=== PATIENT | female | born 1955 | race African-American/Black ===

== ENCOUNTER 2018-12-30 19:53 | Emergency (ER) | payer OTHER ==
--- OUTSIDE RECORDS SUMMARY | 2018-12-30 19:56 | XMS REPORT ---
:1955 [facility] Address [address] [place] [address] [address] [place] [address] Care Team Providers Name Role Phone Unavailable Unavailable Unavailable Problems This patient has no known problems. Allergies, Adverse Reactions, Alerts This patient has no known allergies or adverse reactions. Medications This patient has no known medications.
--- OUTSIDE RECORDS SUMMARY | 2018-12-30 19:56 | XMS REPORT | Clinical Summary ---
:1955 Author Organization [facility] Address [address] [place] [address] Care Team Providers Name Role Phone Unavailable Primary Care Provider Unavailable Allergies Not on File Medications Not on file Active Problems Not on file Social History Tobacco Use Types Packs/Day Years Used Date Never Assessed Sex Assigned at Date Recorded Not on file Job Start Date Occupation Industry Not on file Not on file Not on file Travel History Travel Start Travel End No recent travel history available. Last Filed Vital Signs Not on file Plan of Treatment Not on file Results Not on fileafter 12/29/2017
[2018-12-31] MEDS ORDERED: KETOROLAC 30 MG/ML INJ ONE (00:25)
--- NOTE | 2018-12-31 00:30 | ER ---
Nurse's Notes [facility] Name: Elisa Robledo Age: 63 yrs Sex: Female : 1955 Arrival Date: 12/30/2018 Time: 19:56 Bed 18 Private MD: Diagnosis: Sprain of other specified parts of right knee Presentation: 12/30 20:03 Presenting complaint: Patient states: Right knee pain for 3 weeks, reports burning aj sensation. Minimal swelling. Transition of care: patient was not received from another setting of care. Onset of symptoms was December 08, 2018. Risk Assessment: Do you want to hurt yourself or someone else? Patient reports no desire to harm self or others. Initial Sepsis Screen: Does the patient meet any 2 criteria? No. Patient's initial sepsis screen is negative. Does the patient have a suspected source of infection? No. Patient's initial sepsis screen is negative. Care prior to arrival: None. 20:03 Method Of Arrival: Ambulatory aj 20:03 Acuity: SREEDHAR 4 aj Triage Assessment: 20:04 General: Appears in no apparent distress. comfortable, Behavior is calm, cooperative, aj appropriate for age. Pain: Complains of pain in right knee. Neuro: Level of Consciousness is awake, alert, obeys commands, Oriented to person, place, time, situation, Appropriate for age. Respiratory: Airway is patent Trachea midline Respiratory effort is even, unlabored, Respiratory pattern is regular, symmetrical. Derm: Skin is intact, is healthy with good turgor, Skin is pink, warm \T\ dry. normal. Musculoskeletal: Reports pain in right knee. Historical: - Allergies: 20:04 Codeine; aj - Home Meds: 20:04 levothyroxine 25 mcg tab 1 tab once daily [Active]; lisinopril 10 mg Oral tab 1 tab aj once daily [Active]; - PMHx: 20:04 Hypertension; aj - PSHx: 20:04 None; aj - Immunization history:: Adult Immunizations up to date. - Social history:: Smoking status: Patient/guardian denies using tobacco. - Ebola Screening: : Patient negative for fever greater than or equal to 101.5 degrees Fahrenheit, and additional compatible Ebola Virus Disease symptoms Patient denies exposure to infectious person Patient denies travel to an Ebola-affected area in the 21 days before illness onset No symptoms or risks identified at this time. Screenin:40 Abuse screen: Denies threats or abuse. Nutritional screening: No deficits noted. jb4 Tuberculosis screening: No symptoms or risk factors identified. Fall Risk None identified. Assessment: 21:35 General: Appears in no apparent distress. comfortable, Behavior is calm, cooperative, jb4 appropriate for age. Pain: Complains of pain in right knee Pain does not radiate. Pain currently is 8 out of 10 on a pain scale. at worst was 10 out of 10 on a pain scale. Quality of pain is described as burning, Pain began 2-3 days ago. Is continuous, Alleviated by rest, Aggravated by increased activity, weight bearing. Neuro: Level of Consciousness is awake, alert, obeys commands, Oriented to person, place, time, situation. Cardiovascular: Patient's skin is warm and dry. Respiratory: Airway is patent Respiratory effort is even, unlabored, Respiratory pattern is regular, symmetrical. GI: No signs and/or symptoms were reported involving the gastrointestinal system. : No signs and/or symptoms were reported regarding the genitourinary system. EENT: No signs and/or symptoms were reported regarding the EENT system. Derm: Skin is intact, Skin is dry, Skin is normal, Skin temperature is warm. Musculoskeletal: Circulation, motion, and sensation intact. Range of motion: intact in all extremities. 22:19 Reassessment: Patient appears in no apparent distress at this time. Patient and/or jb4 family updated on plan of care and expected duration. Pain level reassessed. Patient is alert, oriented x 3, equal unlabored respirations, skin warm/dry/pink. 23:30 Reassessment: Patient appears in no apparent distress at this time. Patient and/or jb4 family updated on plan of care and expected duration. Pain level reassessed. Patient is alert/active/playful, equal unlabored respirations, skin warm/dry/pink. Vital Signs: 20:04 BP 98 / 66; Pulse 75; Resp 18; Temp 98.5; Pulse Ox 98% on R/A; Weight 81.19 kg; Height aj 5 ft. 4 in. (162.56 cm); 22:15 BP 103 / 77; Pulse 79; Resp 18; Pulse Ox 100% on R/A; jb4 23:38 BP 105 / 84; Pulse 55; Resp 16; Pulse Ox 100% on R/A; jb4 20:04 Body Mass Index 30.72 (81.19 kg, 162.56 cm) ED Course: 19:56 Patient arrived in ED. ag3 20:03 Triage completed. 20:04 Arm band placed on left wrist. Patient placed in waiting room, Patient notified of wait aj time. 21:17 Knee Right 3 View XRAY In Process Unspecified. EDMS 21:30 Ryan Alonzo MD is Attending Physician. tw4 21:40 Patient has correct armband on for positive identification. Bed in low position. Call [facility] light in reach. Side rails up X 1. Pulse ox on. NIBP on. 21:44 Hunter Toro, RN is Primary Nurse. [facility] 23:47 Door closed. Lights dimmed. Warm blanket given. Pillow given. 4 12/31 00:40 No provider procedures requiring assistance completed. Patient did not have IV access ch during this emergency room visit. Knee immobilizer applied on left knee. Administered Medications: 00:17 Drug: TORadol 60 mg Route: IM; Site: right gluteus; [facility] Outcome: 00:28 Discharge ordered by . [facility] 00:50 Discharged to home ambulatory, with family. 00:50 Condition: stable 00:50 Discharge instructions given to patient, Instructed on discharge instructions, follow up and referral plans. medication usage, Demonstrated understanding of instructions, follow-up care, medications, Prescriptions given X 1. 00:52 Patient left the ED. Signatures: Dispatcher [employer] EDMS Ivette Benedict, RN OCTAVIA Ree Maradiaga RN RN Hunter Toro, OCTAVIA DUDLEY [facility] Ryan Alonzo MD MD [facility] Skye Mathias 3
--- NOTE | 2018-12-31 00:30 | EDPHYS ---
Physician Documentation [facility] Name: Elisa Robledo Age: 63 yrs Sex: Female : 1955 Arrival Date: 12/30/2018 Time: 19:56 Bed 18 Private MD: ED Physician Ryan Alonzo HPI: 12/31 05:45 This 63 yrs old Black Female presents to ER via Ambulatory with complaints of Knee tw4 Injury. 05:45 The patient presents with pain. The complaints affect the right knee. Context: The tw4 problem was sustained at home, resulted from. Onset: The symptoms/episode began/occurred today. Modifying factors: The symptoms are alleviated by nothing. the symptoms are aggravated by nothing. Associated signs and symptoms: The patient has no apparent associated signs or symptoms. Severity of symptoms: At their worst the symptoms were moderate, in the emergency department the symptoms are unchanged. The patient has not experienced similar symptoms in the past. Historical: - Allergies: 12/30 20:04 Codeine; aj - Home Meds: 20:04 levothyroxine 25 mcg tab 1 tab once daily [Active]; lisinopril 10 mg Oral tab 1 tab aj once daily [Active]; - PMHx: 20:04 Hypertension; aj - PSHx: 20:04 None; aj - Immunization history:: Adult Immunizations up to date. - Social history:: Smoking status: Patient/guardian denies using tobacco. - Ebola Screening: : Patient negative for fever greater than or equal to 101.5 degrees Fahrenheit, and additional compatible Ebola Virus Disease symptoms Patient denies exposure to infectious person Patient denies travel to an Ebola-affected area in the 21 days before illness onset No symptoms or risks identified at this time. ROS: 12/31 05:45 Constitutional: Negative for fever, chills, and weight loss, Eyes: Negative for injury, tw4 pain, redness, and discharge, Cardiovascular: Negative for chest pain, palpitations, and edema, Respiratory: Negative for shortness of breath, cough, wheezing, and pleuritic chest pain, Abdomen/GI: Negative for abdominal pain, nausea, vomiting, diarrhea, and constipation, Back: Negative for injury and pain. Skin: Negative for injury, rash, and discoloration, Neuro: Negative for headache, weakness, numbness, tingling, and seizure. MS/extremity: Positive for pain, swelling, tenderness. Exam: 05:45 Constitutional: This is a well developed, well nourished patient who is awake, alert, tw4 and in no acute distress. Head/Face: Normocephalic, atraumatic. Chest/axilla: Normal chest wall appearance and motion. Nontender with no deformity. No lesions are appreciated. Cardiovascular: Regular rate and rhythm with a normal S1 and S2. No gallops, murmurs, or rubs. Normal PMI, no JVD. No pulse deficits. Respiratory: Lungs have equal breath sounds bilaterally, clear to auscultation and percussion. No rales, rhonchi or wheezes noted. No increased work of breathing, no retractions or nasal flaring. Abdomen/GI: Soft, non-tender, with normal bowel sounds. No distension or tympany. No guarding or rebound. No evidence of tenderness throughout. Back: No spinal tenderness. No costovertebral tenderness. Full range of motion. Neuro: Awake and alert, GCS 15, oriented to person, place, time, and situation. Cranial nerves II-XII grossly intact. Motor strength 5/5 in all extremities. Sensory grossly intact. Cerebellar exam normal. Normal gait. 05:45 Musculoskeletal/extremity: Extremities: noted in the right knee: Vital Signs: 12/30 20:04 BP 98 / 66; Pulse 75; Resp 18; Temp 98.5; Pulse Ox 98% on R/A; Weight 81.19 kg; Height aj 5 ft. 4 in. (162.56 cm); 22:15 BP 103 / 77; Pulse 79; Resp 18; Pulse Ox 100% on R/A; jb4 23:38 BP 105 / 84; Pulse 55; Resp 16; Pulse Ox 100% on R/A; jb4 20:04 Body Mass Index 30.72 (81.19 kg, 162.56 cm) aj MDM: 21:52 Patient medically screened. tw4 12/31 05:51 Differential diagnosis: dislocation, open fracture. Data reviewed: vital signs, nurses tw4 notes. Data interpreted: Pulse oximetry: Interpretation:. Counseling: I had a detailed discussion with the patient and/or guardian regarding: the historical points, exam findings, and any diagnostic results supporting the discharge/admit diagnosis. Special discussion: I discussed with the patient/guardian in detail that at this point there is no indication for admission to the hospital. It is understood, however, that if the symptoms persist or worsen the patient needs to return immediately for re-evaluation. 12/30 20:05 Order name: Knee Right 3 View XRAY aj 12/31 00:17 Order name: Knee Immobilizer; Complete Time: 00:18 jb4 Administered Medications: 00:17 Drug: TORadol 60 mg Route: IM; Site: right gluteus; jb4 Disposition: 12/31/18 00:28 Discharged to Home. Impression: Sprain of other specified parts of right knee. - Condition is Stable. - Discharge Instructions: Knee Sprain, [id number]. - Prescriptions for Tramadol 50 mg Oral Tablet - take 1 tablet by ORAL route every 8 hours as needed; 12 tablet. - Medication Reconciliation Form, Thank You Letter, Antibiotic Education, Prescription Opioid Use form. - Follow up: Private Physician; When: Upon discharge from the Emergency Department; Reason: If symptoms return, Recheck today's complaints, Continuance of care. - Problem is new. - Symptoms have improved. Signatures: Dispatcher [employer] EDMS Ivette Benedict RN RN ch Myers, Amanda, RN RN aj Bryson, James, RN RN jb4 Ryan Alonzo MD MD tw4 Corrections: (The following items were deleted from the chart) 00:52 00:28 12/31/2018 00:28 Discharged to Home. Impression: Sprain of other specified parts ch of right knee. Condition is Stable. Forms are Medication Reconciliation Form, Thank You Letter, Antibiotic Education, Prescription Opioid Use. Follow up: Private Physician; When: Upon discharge from the Emergency Department; Reason: If symptoms return, Recheck today's complaints, Continuance of care. Problem is new. Symptoms have improved. tw4
--- NOTE | 2018-12-31 07:37 | RAD REPORT ---
EXAM DESCRIPTION: RAD - Knee Right 3 View - 12/30/2018 9:15 pm CLINICAL HISTORY: Persistent right knee pain COMPARISON: None. FINDINGS: No fracture, dislocation or periosteal reaction.No joint effusion seen. No joint space alden rowing. No foreign body or other soft tissue abnormality. Minimal spurring seen at the quadriceps att achment to the patella. IMPRESSION: Negative right knee for acute finding. Clinical concerns for internal derangement or occult bony injury could be further assessed with MR im aging.
== END 2018-12-31 00:52 | disposition home or self-care (01) ==
LOC: ER 19:53
DX: S83.91XA Sprain of unspecified site of right knee, initial encounter (principal); I10 Essential (primary) hypertension; Z88.5 Allergy status to narcotic agent
CPT/HCPCS: 96372; 99284

== ENCOUNTER 2019-03-30 16:56 | Emergency (ER) | payer OTHER ==
--- NOTE | 2019-03-30 18:32 | RAD REPORT ---
EXAM DESCRIPTION: RAD - Foot Left 3 View - 03/30/2019 6:07 pm CLINICAL HISTORY: Left fourth toe pain COMPARISON: None. FINDINGS: No fracture, dislocation, periosteal reaction or other acute fourth toe finding. No joint abnormality. Minimal degenerative change seen along the lateral margin of the fifth metatarsal head. No active pro cess seen. Mild degenerative change at the first MTP joint. No acute or destructive bony process. No plantar spur. No air or foreign body in the soft tissues. IMPRESSION: No acute bone or soft tissue finding at the fourth toe. Mild degenerative change in the foot with no acute finding.
--- NOTE | 2019-03-30 18:48 | EDPHYS ---
Physician Documentation [facility] Name: Elisa Robledo Age: 63 yrs Sex: Female : 1955 Arrival Date: 03/30/2019 Time: 17:00 Bed 25 Private MD: Jonathon Bassett S ED Physician West Reid HPI: 03/30 17:50 This 63 yrs old Black Female presents to ER via Ambulatory with complaints of Toe cp pain,swelling. 17:50 The patient presents with pain, that is acute. The complaints affect the left fourth cp toe. Context: the patient can fully bear weight, the patient is able to ambulate, with mild difficulty. Onset: The symptoms/episode began/occurred 2-3 weeks ago. Associated signs and symptoms: Pertinent negatives: calf tenderness, numbness, swelling, warmth. Severity of symptoms: in the emergency department the symptoms have improved, mildly. Historical: - Allergies: 17:44 Codeine; mg2 - Home Meds: 17:44 levothyroxine 25 mcg tab 1 tab once daily [Active]; lisinopril 10 mg Oral tab 1 tab mg2 once daily [Active]; gabapentin oral oral [Active]; - PMHx: 17:44 Hypertension; Hypothyroidism; shingles; mg2 - PSHx: 17:44 left foot sx; mg2 - Immunization history:: Flu vaccine is up to date. - Social history:: Smoking status: Patient/guardian denies using tobacco, Patient/guardian denies using alcohol, street drugs, IV drugs. - Ebola Screening: : No symptoms or risks identified at this time. ROS: 17:55 Constitutional: Negative for body aches, chills, fever, poor PO intake. cp 17:55 Eyes: Negative for injury, pain, redness, and discharge. cp 17:55 Cardiovascular: Negative for chest pain, palpitations. 17:55 Respiratory: Negative for cough, shortness of breath, wheezing. 17:55 Abdomen/GI: Negative for abdominal pain, vomiting, diarrhea, constipation. 17:55 Back: Negative for pain at rest, pain with movement. 17:55 MS/extremity: Positive for pain, of the left fourth toe, Negative for injury or acute deformity. 17:55 Skin: Negative for cellulitis, rash. 17:55 All other systems are negative. Exam: 18:05 Constitutional: The patient appears in no acute distress, alert, awake, non-toxic, well cp developed, well nourished. 18:05 Head/Face: Normocephalic, atraumatic. cp 18:05 Eyes: Periorbital structures: appear normal, Sclera: no appreciated abnormality, Lids and lashes: appear normal, bilaterally. 18:05 ENT: External ear(s): are unremarkable, Nose: is normal, Mouth: is normal. 18:05 Chest/axilla: Inspection: normal. 18:05 Cardiovascular: Rate: normal. 18:05 Respiratory: the patient does not display signs of respiratory distress, Respirations: normal. 18:05 Abdomen/GI: Inspection: abdomen appears normal. 18:05 Musculoskeletal/extremity: Extremities: grossly normal except: noted in the left fourth toe: deformity, pain, tenderness, There is no evidence of erythema, Perfusion: the extremity is normally perfused throughout, Sensation intact. 18:05 Skin: abscess, not appreciated, cellulitis, is not appreciated, injury, is not appreciated. Vital Signs: 17:42 BP 124 / 80; Pulse 89; Resp 18; Temp 98.8(TE); Pulse Ox 99% on R/A; Weight 78.02 kg; mg2 Height 5 ft. 2 in. (157.48 cm); Pain 6/10; 19:14 BP 122 / 80; Pulse 80; Resp 18; Temp 98; Pulse Ox 100% on R/A; mg2 17:42 Body Mass Index 31.46 (78.02 kg, 157.48 cm) mg2 MDM: 17:33 Patient medically screened. cp 18:00 Differential diagnosis: fracture, cellulitis. cp 18:46 Data reviewed: vital signs, nurses notes, radiologic studies, plain films. cp 18:46 Test interpretation: by ED physician or midlevel provider: plain radiologic studies, cp xrays of left foot negative for fracture. Counseling: I had a detailed discussion with the patient and/or guardian regarding: the historical points, exam findings, and any diagnostic results supporting the discharge/admit diagnosis, radiology results, the need for outpatient follow up, a baker bread, to return to the emergency department if symptoms worsen or persist or if there are any questions or concerns that arise at home. Response to treatment: the patient's symptoms have mildly improved after treatment, and as a result, I will discharge patient. 03/30 17:43 Order name: XRAY Foot LEFT 3 View cp 03/30 18:52 Order name: Post-op shoe; Complete Time: 19:13 cp Administered Medications: No medications were administered Disposition: 03/31 16:29 Co-signature as Attending Physician, West Reid MD. rn Disposition: 03/30/19 18:47 Discharged to Home. Impression: Pain in left toe(s) - left fourth. - Condition is Stable. - Discharge Instructions: Musculoskeletal Pain. - Prescriptions for Ibuprofen 800 mg Oral Tablet - take 1 tablet by ORAL route every 8 hours As needed take with food; 30 tablet. - Medication Reconciliation Form, Thank You Letter, Antibiotic Education, Prescription Opioid Use form. - Follow up: Gokul Alexandre DPM; When: 2 - 3 days; Reason: toe pain. - Problem is new. - Symptoms are unchanged. Signatures: Dispatcher [employer] EDWest Melara MD MD rn Miguel Pandey PA PA cp Gardose, Michele, RN RN mg2 Corrections: (The following items were deleted from the chart) 03/30 19:15 18:47 03/30/2019 18:47 Discharged to Home. Impression: Pain in left toe(s) - left mg2 fourth. Condition is Stable. Forms are Medication Reconciliation Form, Thank You Letter, Antibiotic Education, Prescription Opioid Use. Follow up: Gokul Alexandre; When: 2 - 3 days; Reason: toe pain. Problem is new. Symptoms are unchanged. cp
--- NOTE | 2019-03-30 18:48 | ER ---
Nurse's Notes [facility] Name: Elisa Robledo Age: 63 yrs Sex: Female : 1955 Arrival Date: 03/30/2019 Time: 17:00 Bed 25 Private MD: Jonathon Bassett S Diagnosis: Pain in left toe(s)-left fourth Presentation: 03/30 17:40 Presenting complaint: Patient states: my left 4th toe has been hurting for awhile now. mg2 i took tramadol this morning and it helped. Transition of care: patient was not received from another setting of care. Onset of symptoms was March 2019. Risk Assessment: Do you want to hurt yourself or someone else? Patient reports no desire to harm self or others. Initial Sepsis Screen: Does the patient meet any 2 criteria? No. Patient's initial sepsis screen is negative. Does the patient have a suspected source of infection? No. Patient's initial sepsis screen is negative. Care prior to arrival: None. 17:40 Method Of Arrival: Ambulatory mg2 17:40 Acuity: SREEDHAR 4 mg2 Historical: - Allergies: 17:44 Codeine; mg2 - Home Meds: 17:44 levothyroxine 25 mcg tab 1 tab once daily [Active]; lisinopril 10 mg Oral tab 1 tab mg2 once daily [Active]; gabapentin oral oral [Active]; - PMHx: 17:44 Hypertension; Hypothyroidism; shingles; mg2 - PSHx: 17:44 left foot sx; mg2 - Immunization history:: Flu vaccine is up to date. - Social history:: Smoking status: Patient/guardian denies using tobacco, Patient/guardian denies using alcohol, street drugs, IV drugs. - Ebola Screening: : No symptoms or risks identified at this time. Screenin:05 Abuse screen: Denies threats or abuse. Denies injuries from another. Nutritional mg2 screening: No deficits noted. Tuberculosis screening: No symptoms or risk factors identified. Fall Risk None identified. Assessment: 18:03 General: Appears in no apparent distress. comfortable, Behavior is calm, cooperative. mg2 Pain: Complains of pain in left 4th toe Pain does not radiate. Pain currently is 6 out of 10 on a pain scale. Quality of pain is described as aching, Pain began gradually. Neuro: Level of Consciousness is awake, alert, obeys commands, Oriented to person, place, time, situation. Cardiovascular: Capillary refill < 3 seconds Patient's skin is warm and dry. Respiratory: Airway is patent Respiratory effort is even, unlabored, Respiratory pattern is regular, symmetrical. GI: No signs and/or symptoms were reported involving the gastrointestinal system. : No signs and/or symptoms were reported regarding the genitourinary system. EENT: No signs and/or symptoms were reported regarding the EENT system. Derm: Skin is intact, is healthy with good turgor, Skin is pink, warm \T\ dry. normal. Musculoskeletal: Vital Signs: 17:42 BP 124 / 80; Pulse 89; Resp 18; Temp 98.8(TE); Pulse Ox 99% on R/A; Weight 78.02 kg; mg2 Height 5 ft. 2 in. (157.48 cm); Pain 6/10; 19:14 BP 122 / 80; Pulse 80; Resp 18; Temp 98; Pulse Ox 100% on R/A; mg2 17:42 Body Mass Index 31.46 (78.02 kg, 157.48 cm) mg2 ED Course: 17:00 Patient arrived in ED. mr 17:00 Jonathon Bassett MD is Private Physician. mr 17:32 Jesse Lott, OCTAVIA is Primary Nurse. mg2 17:33 Miguel Pandey PA is PHCP. cp 17:33 West Reid MD is Attending Physician. cp 17:42 Triage completed. mg2 17:44 Arm band placed on. mg2 18:05 Patient has correct armband on for positive identification. Pulse ox on. NIBP on. Door mg2 closed. Warm blanket given. 18:06 No provider procedures requiring assistance completed. Patient did not have IV access mg2 during this emergency room visit. 18:09 XRAY Foot LEFT 3 View In Process Unspecified. EDMS 18:46 Gokul Alexandre DPM is Referral Physician. cp 19:14 post op shoe provided. mg2 Administered Medications: No medications were administered Outcome: 18:47 Discharge ordered by MD. cp 19:14 Discharged to home ambulatory. mg2 19:14 Condition: stable 19:14 Discharge instructions given to patient, Instructed on discharge instructions, follow up and referral plans. medication usage, Demonstrated understanding of instructions, follow-up care, medications, Prescriptions given X 1. 19:15 Patient left the ED. mg2 Signatures: Dispatcher [employer] EDMS MorrowBruna mr Miguel Pandey PA PA cp Gardose, Michele, RN RN mg2
[2019-03-30 19:27] VITALS: BP 122/80; TEMP 98; O2SAT 100
== END 2019-03-30 19:15 | disposition home or self-care (01) ==
LOC: ER 16:56
DX: M79.675 Pain in left toe(s) (principal); I10 Essential (primary) hypertension; E03.9 Hypothyroidism, unspecified; Z88.5 Allergy status to narcotic agent
CPT/HCPCS: 99284

== ENCOUNTER 2019-08-04 17:55 | Emergency (ER) | payer OTHER ==
--- OUTSIDE RECORDS SUMMARY | 2019-08-04 17:57 | XMS REPORT ---
:1955 [facility] [address] [place] [address] Care Team Providers Name Role Phone Unavailable Unavailable Unavailable Problems This patient has no known problems. Allergies, Adverse Reactions, Alerts This patient has no known allergies or adverse reactions. Medications This patient has no known medications.
--- OUTSIDE RECORDS SUMMARY | 2019-08-04 17:58 | XMS REPORT | Summary of Care ---
:1955 Author Organization [facility] Address [address] [place] [id number] Care Team Providers Name Role Phone Jonathon Bassett MD Primary Care Provider Reason for Visit Reason Comments Refill Request Encounter Details Date Type Department Care Team Description 07/13/2019 Refill [facility] Family Medicine Jonathon Bassett MD Refill Request - [address] [id number] [place] [address] Allergies Active Allergy Reactions Severity Noted Date Comments Codeine Unknown - See comments 04/11/2015 Does not remember what the side effect was. documented as of this encounter (statuses as of 07/13/2019) Medications Medication Sig Dispensed Refills Start Date End Date Status acyclovir 5 % Apply to 5 g 0 06/19/2017 Active ointment area(s) 5 (five) times daily. fluocinonide 0.05 % Apply to 30 g 5 07/16/2017 Active cream area(s) 2 (two) times daily. hydrOXYzine 25 mg Take 1 tablet 15 tablet 0 08/27/2017 Active tabletIndications: by mouth every Rash 8 (eight) hours as needed for Itching. METHOCARBAMOL ORAL Take by mouth 0 Active as needed. dicyclomine 10 mg Take 1 capsule 90 capsule 1 01/20/2018 Active capsule by mouth 3 (three) times daily as needed for Abdominal pain. SHINGRIX, PF, 0 08/30/2018 Active injection lisinopril-hydrochlo TAKE 1 TABLET 90 tablet 3 09/23/2018 Active rothiazide 20-25 mg BY MOUTH ONCE per DAILY tabletIndications: Essential hypertension levothyroxine 75 mcg TAKE ONE 90 tablet 3 09/24/2018 Active tablet TABLET BY MOUTH ONCE DAILY IN THE MORNING conjugated estrogens Begin 0.5 g PV 30 g 3 10/03/2018 Active 0.625 mg/gram qd x 2 weeks vaginal then 0.5 g PV creamIndications: 2x/wk Postmenopausal state, Vaginal atrophy naproxen 500 mg Take 1 tablet 30 tablet 0 01/01/2019 Active tabletIndications: by mouth 2 Acute pain of right (two) times knee daily as needed for Pain (scale 4-6). GABAPENTIN 300 mg TAKE 1 CAPSULE 90 capsule 0 07/13/2019 Active capsuleIndications: BY MOUTH THREE Neurogenic pain TIMES DAILY gabapentin 300 mg TAKE 1 CAPSULE 90 capsule 3 09/23/2018 Discontinued capsuleIndications: BY MOUTH THREE 0 Neurogenic pain TIMES DAILY documented as of this encounter (statuses as of 07/13/2019) Active Problems Problem Noted Date Obesity (BMI 30-39.9) 10/03/2018 Hiatal hernia 08/13/2017 Hypertension Neurogenic pain Hypothyroid documented as of this encounter (statuses as of 07/13/2019) Immunizations Name Administration Dates Next Due Influenza Virus Vaccine Quad ID [id number] [id number] 05/02/2018 documented as of this encounter Social History Tobacco Use Types Packs/Day Years Used Date Never Smoker Smokeless Tobacco: Never Used Alcohol Use Drinks/Week oz/Week Comments No 0 Standard drinks or equivalent 0.0 Sex Assigned at Date Recorded Not on file Job Start Date Occupation Industry Not on file Not on file Not on file Travel History Travel Start Travel End No recent travel history available. documented as of this encounter Last Filed Vital Signs Not on filedocumented in this encounter Plan of Treatment Health Maintenance Due Date Last Done Comments HEPATITIS C (HCV) SCREEN 1955 DTaP,Tdap,and Td Vaccines (1 1968 - Tdap) COLONOSCOPY 2007 Zoster Recombinant Vaccine 2007 (SHINGRIX) (1 of 2) INFLUENZA VACCINE (#1) 2019 Breast Cancer Screening 10/04/2019 10/03/2018, (MAMMOGRAM) 10/08/2016 PAP SMEAR 10/03/2021 10/03/2018 PNEUMOCOCCAL 0-64 YEARS Aged Out No longer eligible based COMBINED SERIES on patient's age to complete this topic documented as of this encounter Results Not on filedocumented in this encounter Visit Diagnoses Diagnosis Neurogenic pain Neuralgia, neuritis, and radiculitis, unspecified documented in this encounter Insurance Payer Benefit Plan / Group Subscriber ID Effective Dates Phone Address Type AETDILSHAD CHACON [employer] [id number] 2012-Present PPO documented as of this encounter
--- OUTSIDE RECORDS SUMMARY | 2019-08-04 17:58 | XMS REPORT | Summary of Care ---
:1955 Author Organization [facility] - Health Address [address] [place] [address] Care Team Providers Name Role Phone Jonathon Bassett MD Primary Care Provider Encounter Details Date Type Department Care Team Description 06/23/2019 Orders Only [facility] Doctor Unassigned, No [address] [facility] Name [place] [id number] [address] [place] [id number] Allergies Active Allergy Reactions Severity Noted Date Comments Codeine Unknown - See comments 04/11/2015 Does not remember what the side effect was. documented as of this encounter (statuses as of 06/23/2019) Medications Medication Sig Dispensed Refills Start Date End Date Status acyclovir 5 % ointment Apply to area(s) 5 g 0 06/19/2017 Active 5 (five) times daily. fluocinonide 0.05 % Apply to area(s) 30 g 5 07/16/2017 Active cream 2 (two) times daily. hydrOXYzine 25 mg Take 1 tablet by 15 tablet 0 08/27/2017 Active tabletIndications: mouth every 8 Rash (eight) hours as needed for Itching. METHOCARBAMOL ORAL Take by mouth as 0 Active needed. dicyclomine 10 mg Take 1 capsule by 90 capsule 1 01/20/2018 Active capsule mouth 3 (three) times daily as needed for Abdominal pain. SHINGRIX, PF, 0 08/30/2018 Active injection lisinopril-hydrochloro TAKE 1 TABLET BY 90 tablet 3 09/23/2018 Active thiazide 20-25 mg per MOUTH ONCE DAILY tabletIndications: Essential hypertension gabapentin 300 mg TAKE 1 CAPSULE BY 90 capsule 3 09/23/2018 Active capsuleIndications: MOUTH THREE TIMES Neurogenic pain DAILY levothyroxine 75 mcg TAKE ONE TABLET 90 tablet 3 09/24/2018 Active tablet BY MOUTH ONCE DAILY IN THE MORNING conjugated estrogens Begin 0.5 g PV qd 30 g 3 10/03/2018 Active 0.625 mg/gram vaginal x 2 weeks then creamIndications: 0.5 g PV 2x/wk Postmenopausal state, Vaginal atrophy naproxen 500 mg Take 1 tablet by 30 tablet 0 01/01/2019 Active tabletIndications: mouth 2 (two) Acute pain of right times daily as knee needed for Pain (scale 4-6). documented as of this encounter (statuses as of 06/23/2019) Active Problems Problem Noted Date Obesity (BMI 30-39.9) 10/03/2018 Hiatal hernia 08/13/2017 Hypertension Neurogenic pain Hypothyroid documented as of this encounter (statuses as of 06/23/2019) Immunizations Name Administration Dates Next Due Influenza [...] (HCV) SCREEN 1955 DTaP,Tdap,and Td Vaccines (1 1976 - Tdap) COLONOSCOPY 2007 Zoster Recombinant Vaccine 2007 (SHINGRIX) (1 of 2) INFLUENZA VACCINE (#1) 2019 Breast Cancer Screening 10/04/2019 10/03/2018, (MAMMOGRAM) 10/08/2016 PAP SMEAR 10/03/2021 10/03/2018 PNEUMOCOCCAL 0-64 YEARS Aged Out No longer eligible based COMBINED SERIES on patient's age to complete this topic documented as of this encounter Procedures Procedure Name Priority Date/Time Associated Diagnosis Comments VACCINATIONS - CONSENTS, Routine 06/23/2019 12:01 AM 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
[2019-08-04] MEDS ORDERED: CYCLOBENZAPRINE 10 MG TAB ONE (18:58)
[2019-08-04] MEDS ORDERED: KETOROLAC 30 MG/ML INJ ONE (18:58)
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
[2019-08-05 02:26] VITALS: O2SAT 99
[2019-08-05 02:28] VITALS: BP 122/74; TEMP 98.2
== END 2019-08-04 19:26 | disposition home or self-care (01) ==
LOC: ER 17:55
DX: S13.4XXA Sprain of ligaments of cervical spine, initial encounter (principal); S23.3XXA Sprain of ligaments of thoracic spine, initial encounter; V49.40XA Driver injured in collision with unspecified motor vehicles in traffic accident, initial encounter; I10 Essential (primary) hypertension; Z88.5 Allergy status to narcotic agent
CPT/HCPCS: 96372; 99283

== ENCOUNTER 2019-08-06 13:27 | Emergency (ER) | payer OTHER ==
--- OUTSIDE RECORDS SUMMARY | 2019-08-06 13:28 | XMS REPORT ---
:1955 Author [facility] Address [address] [place] [address] Care Team Providers Name Role Phone Unavailable Unavailable Unavailable Problems This patient has no known problems. Allergies, Adverse Reactions, Alerts This patient has no known allergies or adverse reactions. Medications This patient has no known medications.
[2019-08-06 14:20] LABS: Absolute Lymphocytes (CBC) 1.2 K/uL (0.7-4.9); Basophils % 0.9 % (0-1.3); Hematocrit 35.1 % (36.0-45.0); Lymphocytes % 29.1 % (15.3-44.8); MPV 8.8 fL (7.6-11.3); RBC Red Blood Cell Count 4.31 M/uL (3.86-4.86)
[2019-08-06 14:27] LABS: BUN Blood Urea Nitrogen 11 mg/dL (7-18); Bicarbonate 27 mmol/L (21-32); Glucose Level 80 mg/dL (74-106); Potassium 3.3 mmol/L (3.5-5.1); Sodium Level 141 mmol/L (136-145)
[2019-08-06] MEDS ORDERED: POTASSIUM CL SA 10 MEQ TAB PO ONE (14:56)
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
[2019-08-06 15:56] VITALS: TEMP 98.1; O2SAT 99
[2019-08-06 15:58] VITALS: BP 134/81
== END 2019-08-06 15:46 | disposition home or self-care (01) ==
LOC: ER 13:27
DX: G89.11 Acute pain due to trauma (principal); I10 Essential (primary) hypertension; Z88.5 Allergy status to narcotic agent
CPT/HCPCS: 85025; 80048; 36415; 70450; 72125; 71260; 74177; 99284; Q9967

== ENCOUNTER 2022-02-28 22:48 | Emergency (ER) | payer BC, OTHER ==
--- OUTSIDE RECORDS SUMMARY | 2022-02-28 22:52 | XMS REPORT | Continuity of Care Document ---
:1955 Author Organization [facility] t Address [address] [place] [address] Care Team Providers Name Role Phone Beti Dow MD Primary Care Physician Lab, Ang - Db Attending Clinician Unavailable Beti Dow MD Attending Clinician BETI DOW Attending Clinician Unavailable Doctor Unassigned, Tamora Attending Clinician Unavailable Caorl Askew MD Attending Clinician Payers Payer Name Policy Type Policy Number Effective Date Expiration Date S ource Problems Condition Condition Condition Status Onset Resolution Last Treating Co mments Source Name Details Category Date Date Treatment Clinician Date Left upper Left upper Disease Active Overview : Univers quadrant quadrant 5-17 Formattin ity of pain pain 00:00: g of this [place] note Medical might be Branch different from the original. Added automatic ally from request for surgery [id number] Obesity Obesity Disease Active Univers (BMI (BMI 4-26 ity of 30-39.9) 30-39.9) 00:00: [place] [address] Medical Branch Hiatal Hiatal Disease Recurre Univers hernia hernia nce 3-06 ity of 00:00: [place] [address] Medical Branch Hypertensi Hypertensi Disease Active U nivers on on ity of [facility] Neurogenic Neurogenic Disease Active U nivers pain pain ity of [facility] Hypothyroi Hypothyroi Disease Active U nivers d d ity of [facility] Allergies, Adverse Reactions, Alerts Allergy Allergy Status Severity Reaction(s) Onset Inactive Treating Comm ents Source Name Type Date Date Clinician CODEINE DRUG Active Unknown-Cmnt 2014-06 Uni vers INGREDI 06-11 ity of 00:00: [address] Branch Codeine Propensi Active Unknown - 2014-06 Does not Un kendal ty to See comments 06-11 remember it y of adverse 00:00: what the [place] reaction 00 side Medical s effect Branch was. Social History Social Habit Start Date Stop Date Quantity Comments Source Exposure to 2022-02-11 2022-02-21 Not sure [facility] SARS-CoV-2 00:00:00 13:45:00 [facility] [place] [facility] (event) [place] Alcohol intake 2020-12-06 2020-12-06 0 /d [facility] 00:00:00 00:00:00 [facility] Tobacco use and 2017-08-27 2017-08-27 Smokeless tobacco Un iversity of exposure 00:00:00 00:00:00 non-user [facility] Sex Assigned At 1955 [address] [facility] 00:00:00 00:00:00 [facility] Smoking Status Start Date Stop Date Source Never smoked tobacco [facility] Medications Ordered Filled Start Stop Current Ordering Indication Dosage Frequency Signature Comments Components Source Medication Medication Date Date Medication? Clinician (SIG) Name Name levothyroxi Yes [id number] TAKE 1 Univers ne 6-16 TABLET BY ity of (EUTHYROX) 00:00: M[place]TH [place]CE [place] 75 mcg 00 DAILY IN Medical tablet THE Branch MORNING . APPOINTMEN T REQUIRED FOR FUTURE REFILLS levothyroxi Yes [id number] TAKE 1 Univers ne 6-16 TABLET BY ity of (EUTHYROX) 00:00: MOUTH ONCE [place] 75 mcg 00 DAILY IN Medical tablet THE Branch MORNING . APPOINTMEN T REQUIRED FOR FUTURE REFILLS levothyroxi Yes [id number] TAKE 1 Univers ne 6-16 TABLET BY ity of (EUTHYROX) 00:00: MOUTH ONCE [place] 75 mcg 00 DAILY IN Medical tablet THE Branch MORNING . APPOINTMEN T REQUIRED FOR FUTURE REFILLS levothyroxi Yes [id number] TAKE 1 Univers ne 6-16 TABLET BY ity of (EUTHYROX) 00:00: MOUTH ONCE [place] 75 mcg 00 DAILY IN Medical tablet THE Branch MORNING . APPOINTMEN T REQUIRED FOR FUTURE REFILLS lisinopriL- 2021-0 Yes [id number] 1{tbl} Take 1 Univers hydrochloro 4-13 tablet by ity of thiazide 00:00: mouth [place] 20-25 mg 00 daily. Medical per tablet Branch levothyroxi Yes [id number] TAKE 1 Univers ne 4-13 TABLET BY ity of (EUTHYROX) 00:00: MOUTH ONCE [place] 75 mcg 00 DAILY IN Medical tablet THE Branch MORNING . APPOINTMEN T REQUIRED FOR FUTURE REFILLS dicyclomine Yes [id number] 10mg Take 1 Univers 10 mg 4-13 capsule by ity of capsule 00:00: mouth 3 (three) Medical times Branch daily as needed for Abdominal pain. methocarbam Yes [id number] 750mg Take 1 Univers oL 750 mg 4-13 tablet by ity o f tablet 00:00: mouth 4 (four) Medical times Branch daily as needed (muscle spasm). lisinopriL- Yes [id number] 1{tbl} Take 1 Univers hydrochloro 4-13 tablet by ity of thiazide 00:00: mouth [place] 20-25 mg 00 daily. Medical per tablet Branch dicyclomine Yes [id number] 10mg Take 1 Univers 10 mg 4-13 capsule by ity of capsule 00:00: mouth 3 (three) Medical times Branch daily as needed for Abdominal pain. methocarbam 0 Yes [id number] 750mg Take 1 Univers oL 750 mg 4-13 tablet by ity o f tablet 00:00: mouth 4 (four) Medical times Branch daily as needed (muscle spasm). lisinopriL- Yes [id number] 1{tbl} Take 1 Univers hydrochloro 4-13 tablet by ity of thiazide 00:00: mouth [place] 20-25 mg 00 daily. Medical per tablet Branch dicyclomine Yes [id number] 10mg Take 1 Univers 10 mg 4-13 capsule by ity of capsule 00:00: mouth 3 00 (three) Medical times Branch daily as needed for Abdominal pain. methocarbam 2021-0 Yes [id number] 750mg Take 1 Univers oL 750 mg 4-13 tablet by ity o f tablet 00:00: mouth 4 [place] 00 (four) Medical times Branch daily as needed (muscle spasm). lisinopriL- 2021-0 Yes [id number] 1{tbl} Take 1 Univers hydrochloro 4-13 tablet by ity of thiazide 00:00: mouth [place] 20-25 mg 00 daily. Medical per tablet Branch dicyclomine 2021-0 Yes [id number] 10mg Take 1 Univers 10 mg 4-13 capsule by ity of capsule 00:00: mouth 3 [place] 00 (three) Medical times Branch daily as needed for Abdominal pain. methocarbam 0 Yes [id number] 750mg Take 1 Univers oL 750 mg 4-13 tablet by ity o f tablet 00:00: mouth 4 [place] 00 (four) Medical times Branch daily as needed (muscle spasm). lisinopriL- 0 Yes [id number] 1{tbl} Take 1 Univers hydrochloro 4-13 tablet by ity of thiazide 00:00: mouth [place] 20-25 mg 00 daily. Medical per tablet Branch dicyclomine 0 Yes [id number] 10mg Take 1 Univers 10 mg 4-13 capsule by ity of capsule 00:00: mouth 3 [place] 00 (three) Medical times Branch daily as needed for Abdominal pain. methocarbam 0 Yes [id number] 750mg Take 1 Univers oL 750 mg 4-13 tablet by ity o f tablet 00:00: mouth 4 [place] 00 (four) Medical times Branch daily as needed (muscle spasm). levothyroxi 202- No [id number] TAKE 1 Univers ne 4-13 06-16 TABLET BY ity of (EUTHYROX) 00:00: 00:00 MOUTH ONCE [place] 75 mcg 00 :00 DAILY IN Medical tablet THE Branch MORNING . APPOINTMEN T REQUIRED FOR FUTURE REFILLS ibuprofen 0 Yes [id number] 600mg Take 1 Univers 600 mg 6-07 tablet by ity of tablet 00:00: mouth [place] 00 every 8 Medical (eight) Branch hours as needed for Pain (scale 4-6). ibuprofen Yes [id number] 600mg Take 1 Univers 600 mg 6-07 tablet by ity of tablet 00:00: mouth [place] 00 every 8 Medical (eight) Branch hours as needed for Pain (scale 4-6). ibuprofen 2020-0 Yes [id number] 600mg Take 1 Univers 600 mg 6-07 tablet by ity of tablet 00:00: mouth [place] 00 every 8 Medical (eight) Branch hours as needed for Pain (scale 4-6). ibuprofen 2020-0 Yes [id number] 600mg Take 1 Univers 600 mg 6-07 tablet by ity of tablet 00:00: mouth [place] 00 every 8 Medical (eight) Branch hours as needed for Pain (scale 4-6). ibuprofen 2020-0 Yes [id number] 600mg Take 1 Univers 600 mg 6-07 tablet by ity of tablet 00:00: mouth [place] 00 every 8 Medical (eight) Branch hours as needed for Pain (scale 4-6). iopamidol 2020- No [id number] 120mL 120 mL, Univers (ISOVUE 06 05-06 Intravenou ity o f 300-500 mL) 22:30: 21:11 s, ONCE, 1 [place] injection 00 :00 dose, [facility] Medic al 120 mL 10/13/20 at Branch 1730, Routine NAPROXEN 0 Yes Acute pain TAKE 1 U nivers 500 mg 4-09 of right TABLET BY ity of tablet 00:00: knee MOUTH [place] 00 TWICE Medical DAILY Branch NEEDED FOR PAIN (SCALE 4-6) NAPROXEN 2020-0 Yes [id number] TAKE 1 U nivers 500 mg 4-09 TABLET BY ity of tablet 00:00: MOUTH [place] 00 TWICE Medical DAILY Branch NEEDED FOR PAIN (SCALE 4-6) NAPROXEN 2020-0 Yes [id number] TAKE 1 U nivers 500 mg 4-09 TABLET BY ity of tablet 00:00: MOUTH [place] 00 TWICE Medical DAILY Branch NEEDED FOR PAIN (SCALE 4-6) NAPROXEN 2020-0 Yes [id number] TAKE 1 U nivers 500 mg 4-09 TABLET BY ity of tablet 00:00: MOUTH [place] 00 TWICE Medical DAILY Branch NEEDED FOR PAIN (SCALE 4-6) NAPROXEN 2020-0 Yes [id number] TAKE 1 U nivers 500 mg 4-09 TABLET BY ity of tablet 00:00: MOUTH [place] 00 TWICE Medical DAILY Branch NEEDED FOR PAIN (SCALE 4-6) NAPROXEN 2020-0 Yes [id number] TAKE 1 U nivers 500 mg 4-09 TABLET BY ity of tablet 00:00: MOUTH [place] 00 TWICE Medical DAILY Branch NEEDED FOR PAIN (SCALE 4-6) METHOCARBAM Yes Take by Uni vers OL ORAL 3-31 mouth as ity of 13:03: needed. [place] 58 Medical Branch levothyroxi 0 Yes Hypothyroid TAKE 1 Univers ne 75 mcg 2-19 ism, TABLET BY ity o f tablet 00:00: unspecified MOUTH ONCE [place] 00 type DAILY IN Medical THE Branch MORNING fluocinonid 2019-0 Yes Apply to Un kendal e 0.05 % 6-04 area(s) 2 ity of cream 00:00: (two) [place] 00 times Medical daily. Branch fluocinonid 2020-0 Yes Apply to Un kendal e 0.05 % 6-04 area(s) 2 ity of cream 00:00: (two) [place] 00 times Medical daily. Branch fluocinonid 2020-0 Yes Apply to Un kendal e 0.05 % 6-04 area(s) 2 ity of cream 00:00: (two) [place] 00 times Medical daily. Branch fluocinonid 2019-0 Yes Apply to Un kendal e 0.05 % 6-04 area(s) 2 ity of cream 00:00: (two) [place] 00 times Medical daily. Branch fluocinonid 2020-0 Yes Apply to Un kendal e 0.05 % 6-04 area(s) 2 ity of cream 00:00: (two) [place] 00 times Medical daily. Branch fluocinonid 2020-0 Yes Apply to Un kendal e 0.05 % 6-04 area(s) 2 ity of cream 00:00: (two) [place] 00 times Medical daily. Branch GABAPENTIN 2019- Yes Neurogenic TAKE 1 Univers 300 mg 5-13 pain CAPSULE BY ity of capsule 00:00: MOUTH [place] 00 THREE Medical TIMES Branch DAILY lisinopril- 2019-0 Yes Essential TAKE 1 Univers hydrochloro 3-10 hypertensio TABLET BY ity of thiazide 00:00: n MOUTH ONCE [place] 20-25 mg 00 DAILY Medical per tablet Branch conjugated 2018- Yes [id number] Begin 0.5 Univers estrogens 4-26 g PV qd x ity o f 0.625 00:00: 2 weeks [place] mg/gram 00 then 0.5 g Medica l vaginal PV 2x/wk Branch cream conjugated Yes [id number] Begin 0.5 Univers estrogens 4-26 g PV qd x ity o f 0.625 00:00: 2 weeks [place] mg/gram 00 then 0.5 g Medica l vaginal PV 2x/wk Branch cream conjugated Yes [id number] Begin 0.5 Univers estrogens 4-26 g PV qd x ity o f 0.625 00:00: 2 weeks [place] mg/gram 00 then 0.5 g Medica l vaginal PV 2x/wk Branch cream conjugated Yes [id number] Begin 0.5 Univers estrogens 4-26 g PV qd x ity o f 0.625 00:00: 2 weeks [place] mg/gram 00 then 0.5 g Medica l vaginal PV 2x/wk Branch cream conjugated Yes [id number] Begin 0.5 Univers estrogens 4-26 g PV qd x ity o f 0.625 00:00: 2 weeks [place] mg/gram 00 then 0.5 g Medica l vaginal PV 2x/wk Branch cream conjugated Yes Vaginal Begin 0.5 Univers estrogens 4-26 atrophy g PV qd x it y of 0.625 00:00: 2 weeks [place] mg/gram 00 then 0.5 g Medica l vaginal PV 2x/wk Branch cream SHINGRIX, Yes Univers PF, 3-23 ity of injection 00:00: [place] 00 Medical Branch dicyclomine 2017- Yes 10mg Take 1 Univ ers 10 mg 8-13 capsule by ity of capsule 00:00: mouth 3 [place] 00 (three) Medical times Branch daily as needed for Abdominal pain. hydrOXYzine Yes Rash 25mg Take 1 Univ ers 25 mg 3-20 tablet by ity of tablet 00:00: mouth [place] 00 every 8 Medical (eight) Branch hours as needed for Itching. acyclovir 5 Yes Apply to Un kendal % ointment 1-10 area(s) 5 ity of 00:00: (five) [place] 00 times Medical daily. Branch Immunizations Ordered Filled Immunization Date Status Comments [facility] Immunization Name Name SARS-COV-2 COVID-19 2022-01-16 Completed Unive rsity of MODERNA 0.25ML 00:00:[address] [facility] mariella BOOSTER VACCINE Branch SARS-COV-2 COVID-19 2022-01-16 Completed Unive rsity of MODERNA 0.25ML 00:00:00 [place] Medi mariella BOOSTER VACCINE Branch SARS-COV-2 COVID-19 2022-01-16 Completed Unive rsity of MODERNA 0.25ML 00:00:00 [place] Medi mariella BOOSTER VACCINE Branch SARS-COV-2 COVID-19 2021-05-25 Completed Unive rsity of MODERNA VACCINE 00:00:00 [facility] ical Branch SARS-COV-2 COVID-19 2021-05-25 Completed Unive rsity of MODERNA VACCINE 00:00:00 [facility] ical Branch SARS-COV-2 COVID-19 2021-05-25 Completed Unive rsity of MODERNA 12+ YRS 00:00:00 [facility] ical VACCINE Branch SARS-COV-2 COVID-19 2021-05-25 Completed Unive rsity of MODERNA 12+ YRS 00:00:00 [facility] ical VACCINE Branch SARS-COV-2 COVID-19 2021-05-25 Completed Unive rsity of MODERNA 12+ YRS 00:00:00 [facility] ical VACCINE Branch Influenza Virus 2021-04-29 Completed Universit y of Vaccine Recomb Quad 00:00:00 [place] Medical IM, Preserv and ABX Branc h Free 18-64 YRS Influenza Virus 2021-04-29 Completed Universit y of Vaccine Recomb Quad 00:00:00 [place] Medical IM, Preserv and ABX Branc h Free 18-64 YRS Influenza Virus 2021-04-29 Completed Universit y of Vaccine Recomb Quad 00:00:00 [place] Medical IM, Preserv and ABX Branc h Free 18-64 YRS Influenza Virus 2021-04-29 Completed Universit y of Vaccine Recomb Quad 00:00:00 [place] Medical IM, Preserv and ABX Branc h Free 18-64 YRS Influenza Virus 2021-04-29 Completed Universit y of Vaccine Recomb Quad 00:00:00 [place] Medical IM, Preserv and ABX Branc h Free 18-64 YRS SARS-COV-2 COVID-19 2020-09-12 Completed Unive rsity of MODERNA VACCINE 00:00:00 [facility] ical Branch SARS-COV-2 COVID-19 2020-09-12 Completed Unive rsity of MODERNA VACCINE 00:00:00 [place] Med ical Branch SARS-COV-2 COVID-19 2020-09-12 Completed Unive rsity of MODERNA 12+ YRS 00:00:00 [facility] ical VACCINE Branch SARS-COV-2 COVID-19 2020-09-12 Completed Unive rsity of MODERNA 12+ YRS 00:00:00 [facility] VACCINE Branch SARS-COV-2 COVID-19 2020-09-12 Completed Unive rsity of MODERNA 12+ YRS 00:00:00 [facility] VACCINE Branch SARS-COV-2 COVID-19 2020-08-18 Completed Unive rsity of MODERNA VACCINE 00:00:00 [facility] Branch SARS-COV-2 COVID-19 2020-08-18 Completed Unive rsity of MODERNA VACCINE 00:00:00 [facility] Branch SARS-COV-2 COVID-19 2020-08-18 Completed Unive rsity of MODERNA 12+ YRS 00:00:00 [facility] VACCINE Branch SARS-COV-2 COVID-19 2020-08-18 Completed Unive rsity of MODERNA 12+ YRS 00:00:00 [facility] VACCINE Branch SARS-COV-2 COVID-19 2020-08-18 Completed Unive rsity of MODERNA 12+ YRS 00:00:00 [facility] VACCINE Branch Influenza Virus 2020-03-15 Completed Universit y of Vaccine Recomb Quad 00:00:00 [place] Medical IM, Preserv and ABX Branc h Free 18-64 YRS Influenza Virus 2020-03-15 Completed Universit y of Vaccine Recomb Quad 00:00:00 [place] Medical IM, Preserv and ABX Branc h Free 18-64 YRS Influenza Virus 2020-03-15 Completed Universit y of Vaccine Recomb Quad 00:00:00 [place] Medical IM, Preserv and ABX Branc h Free 18-64 YRS Influenza Virus 2020-03-15 Completed Universit y of Vaccine Recomb Quad 00:00:00 [place] Medical IM, Preserv and ABX Branc h Free 18-64 YRS Influenza Virus 2020-03-15 Completed Universit y of Vaccine Recomb Quad 00:00:00 [place] Medical IM, Preserv and ABX Branc h Free 18-64 YRS Influenza Virus 2020-03-15 Completed Universit y of Vaccine Recomb Quad 00:00:00 [place] Medical IM, Preserv and ABX Branc h Free 18-64 YRS Zoster Vaccine 2018-11-24 Completed University of Recombinant 00:00:00 [facility] Zoster Vaccine 2018-11-24 Completed University of Recombinant 00:00:00 [facility] Zoster Vaccine 2018-11-24 Completed University of Recombinant 00:00:00 [facility] Zoster Vaccine 2018-11-24 Completed University of Recombinant 00:00:00 [facility] Zoster Vaccine 2018-11-24 Completed University of Recombinant 00:00:00 [facility] Zoster Vaccine 2018-08-30 Completed University of Recombinant 00:00:00 [facility] Zoster Vaccine 2018-08-30 Completed University of Recombinant 00:00:00 [facility] Zoster Vaccine 2018-08-30 Completed University of Recombinant 00:00:00 [facility] Zoster Vaccine 2018-08-30 Completed University of Recombinant 00:00:00 [facility] Zoster Vaccine 2018-08-30 Completed University of Recombinant 00:00:00 [facility] Influenza Virus 2018-05-02 Completed Universit y of Vaccine Quad ID 00:00:00 [facility] 18-64 YRS Branch Influenza Virus 2018-05-02 Completed Universit y of Vaccine Quad .5 mL 00:00:00 [place] Medical IM 6+ MO Branch Influenza Virus 2018-05-02 Completed Universit y of Vaccine Quad ID 00:00:00 [facility] 18-64 YRS Branch Influenza Virus 2018-05-02 Completed Universit y of Vaccine Quad .5 mL 00:00:00 [place] Medical IM 6+ MO Branch Influenza Virus 2018-05-02 Completed Universit y of Vaccine Quad ID 00:00:00 [facility] ica 18-64 YRS Branch Influenza Virus 2018-05-02 Completed Universit y of Vaccine Quad .5 mL 00:00:00 [place] Medical IM 6+ MO Branch Influenza Virus 2018-05-02 Completed Universit y of Vaccine Quad ID 00:00:00 [place] Med ical 18-64 YRS Branch Influenza Virus 2018-05-02 Completed Universit y of Vaccine Quad .5 mL 00:00:00 [place] Medical IM 6+ MO Branch Influenza Virus 2018-05-02 Completed Universit y of Vaccine Quad ID 00:00:00 [place] Med ical 18-64 YRS Branch Influenza Virus 2018-05-02 Completed Universit y of Vaccine Quad .5 mL 00:00:00 [place] Medical IM 6+ MO Branch Influenza Virus 2018-05-02 Completed Universit y of Vaccine Quad ID 00:00:00 [place] Med ical 18-64 YRS Branch Procedures Procedure Date / Time Performing Clinician Source Performed VACCINATIONS - 2022-01-16 05:01:00 [facility] Un[facility] CONSENTS, ELIGIBILITY, Name Medical B ranch HISTORY CT ABDOMEN PELVIS W 2020-10-13 21:15:28 Esa Quiroz [facility] CONTRAST Medical Branch Plan of Care Planned Activity Planned Date Details Comments Source Future Scheduled 2021-10-03 Screening for [facility] Test 00:00:00 malignant neoplasm of Medica l Branch cervix (procedure) [code = 848333571] Future Scheduled 2021-09-07 Depression screening [facility] Test 00:00:00 (procedure) [code = Medical Branch 003084535] Future Scheduled 2019-10-04 Screening for [facility] Test 00:00:00 malignant neoplasm of Medica l Branch breast (procedure) [code = 620456678] Future Scheduled 2007 Screening for occult [facility] Test 00:00:00 blood in feces Medical Bran h (procedure) [code = 780292855] Future Scheduled 2007 Stool DNA-based [facility] Test 00:00:00 colorectal cancer Medical Br anch screening (procedure) [code = 472782411492738] Future Scheduled 2007 Flexible fiberoptic [facility] Test 00:00:00 sigmoidoscopy Medical Branch (procedure) [code = 89537764] Future Scheduled 2007 Screening for [facility] Test 00:00:00 malignant neoplasm of Medica l Branch colon (procedure) [code = 692184905] Future Scheduled 2007 Screening for [facility] Test 00:00:00 malignant neoplasm of Medica l Branch colon (procedure) [code = 289463854] Future Scheduled 2007 Zoster Recombinant [facility] Test 00:00:00 Vaccine (SHINGRIX) (1 Medica l Branch of 2) [code = Zoster Recombinant Vaccine (SHINGRIX) (1 of 2)] Future Scheduled 1976 DTaP,Tdap,and Td [facility] Test 00:00:00 Vaccines (1 - Tdap) Medical Branch [code = DTaP,Tdap,and Td Vaccines (1 - Tdap)] Future Scheduled 1975 [facility] ([facility] [code = [facility] 372222373] Future Scheduled 1973 [facility]COVID-19[facility] Vaccine (1) [code = [facility] SARS-CoV-2 (COVID-19) Vaccine (1)] Encounters Start End Encounter Admission Attending Care Care Encounter Source Date/Time Date/Time Type Type Clinicians Facility Department ID 2022-02-22 2022-02-22 Grinder Set Up Operator Thread Lab, Ang - Db [facility] [id number] Univers 07:45:00 08:00:00 Visit Beti Dow [facility] [id number] ity of [place] [id number] [place] MANINDER?BLEA [phone] [facility] [address] [place] MEDICAL OFFICE BUILDING 2022-02-22 2022-02-22 Outpatient R [facility] [id number] Univers 07:45:00 07:45:00 [id number] ity [facility] 2022-02-22 2022-02-22 Outpatient R [facility] [id number] Univers 07:45:00 07:45:00 BETI [facility] 2022-02-13 2022-02-13 Telephone Victor M [facility] [id number] Univers 00:00:00 00:00:00 [facility] [id number] it y of [place] [id number] [place] MANINDER?BLEA [phone] [facility] [address] [place] MEDICAL OFFICE BUILDING 2022-01-16 2022-01-16 Orders Doctor BERNARDA [id number] Univers 00:00:00 00:00:00 Only Unassigned, RAVIN [id number] ity of [place] [facility] [id number] [place] [phone] [address] 2021-11-23 2021-11-23 Refill Victor M [facility] [id number] Univers 00:00:00 00:00:00 [facility] [id number] it y of [place] [id number] [place] as MANINDER?BLEA [id number] Ct dical [address] MEDICAL OFFICE BUILDING 2021-11-21 2021-11-21 Denis Dow [facility] [id number] Univers 00:00:00 00:00:00 Beti SoCloz [id number] it y of [place] [id number] [place] MANINDER?BLEA [phone] [address] OFFICE [facility] Results Test Test Test Results Result Source Description Time Comments Comments CT ABDOMEN 2020-10- [facility], Radiant Results Inft University PELVIS W 06 - 10/13/2020 4:30 PM [place] [facility] CONTRAST 21:29:35 CDTCT Abdomen and Pelvis Branch with intravenous contrast.CLINICAL HISTORY: Left upper quadrant abdominal pain.DOSE: Up-to-date CT equipment and radiation dose reduction techniques wereemployed. CTDIvol: 8.28 mGy. DLP: 385 mGy-cm.TECHNIQUE : Contiguous axial imaging from the level of the lung basesthrough the pubic symphysis were performed after the uncomplicatedadministratio n of Omnipaque contrast material. Coronal and sagittalreconstructions were obtained. Auto mA and/or iterative reconstruction wereused to reduce radiation dose.FINDINGS: Comparison has been made with previous CT scan of 12/24/2017.Lower lungs: Clear. No pleural effusion or pericardial effusion. Nodefinite evidence of hiatal hernia.Liver, Gallbladder and Spleen: Liver measures approximately 15 cm in lengthand showed several hypodense lesions scattered throughout the liver,ranging from 5 mm to 2.8 cm in size. Cholecystectomy noted. Mild dilatationof the common hepatic duct and common bile duct noted, measuring up to 8mm. Pancreatic duct is not dilated.Spleen measures 8.8 x 3.5 cm in size and appears normal.Peritoneum: No free air or free fluid. No lymphadenopathy.Pancreas and Adrenals: Unremarkable pancreas and adrenal glands.Kidneys and Ureters: No visible calculi in the renal collecting systems. No hydroureter or hydronephrosis. No enhancing kidney lesions detected. Vessels: Slightly tortuous iliac vessels. No aortic aneurysm. Patenthepatic/portal venous systems and renal veins.Retroperitoneum: No abnormal fluid or lymphadenopathy.Bowel: No acute findings. Normal appendix is visualized.Bladder and Reproductive Organs: Prominent vessels are seen in theparametrium, more prominent on the left side. No free fluid in the pelvis.Grossly unremarkable unopacified urinary bladder.Bones: No acute findings. Battery pack is seen implanted over the rightanterior abdominal wall with intrathecal catheter extending into the lumbarspinal canal at the level of L1-L2 and the tip of the catheter withelectrodes noted in the dorsal aspect of the spinal canal at T11-T12 level.Soft tissues: Battery pack noted in the right anterior abdominal wall.Postoperative changes of ventral abdominal wall hernia noted using multipletitanium anchors and surgical mesh, all of which appear to be in goodposition.CONCLUSION:1. No acute intra-abdominal or pelvic abnormalities detected.2. S/P cholecystectomy. Mild dilatation of the common hepatic and commonbile duct could be reservoir phenomenon.3. Multiple hypodense lesions scattered throughout the liver, consistentwith hepatic cysts.4. Prominent vessels in the pelvis surrounding the uterus, more prominenton the left side noted, however, there is no interval change in thefindings since December 2017 study.5. Postoperative changes of ventral abdominal wall hernia repair withtitanium anchors and surgical mass in good position.
--- NOTE | 2022-02-28 23:34 | RAD REPORT ---
EXAM DESCRIPTION: RAD - Lumbar Spine 3 Views - 02/28/2022 11:28 pm CLINICAL HISTORY: PAIN Radiculopathy COMPARISON: No comparisons FINDINGS: Vertebral body heights appear maintained. No compression fracture noted. Mild anterolisthe sis L4-5. Bilateral facet hypertrophy is present L5-S1. Cholecystectomy clips. IMPRESSION: Mild lower lumbar spondylosis.
[2022-02-28] MEDS ORDERED: DIAZEPAM 5 MG TABLET ONE (23:53)
[2022-02-28] MEDS ORDERED: HYDROCODONE/APAP 5/325 MG TAB ONE (23:54)
[2022-02-28 23:56] LABS: Urine RBC <5 /HPF (None Seen)
--- NOTE | 2022-03-01 00:15 | ER ---
Nurse's Notes [facility] Name: Elisa Robledo Age: 66 yrs Sex: Female : 1955 Arrival Date: 02/28/2022 Time: 22:52 Bed 6 Private MD: Diagnosis: Sciatica, right side Presentation: 02/28 22:57 Chief complaint: Patient states: C/O right hip, lower back pain - reports previous ld1 sciatic pain. Coronavirus screen: At this time, the client does not indicate any symptoms associated with coronavirus-19. Ebola Screen: No symptoms or risks identified at this time. Initial Sepsis Screen: Does the patient meet any 2 criteria? No. Patient's initial sepsis screen is negative. Does the patient have a suspected source of infection? No. Patient's initial sepsis screen is negative. Risk Assessment: Do you want to hurt yourself or someone else? Patient reports no desire to harm self or others. Onset of symptoms was February 28, 2022. 22:57 Method Of Arrival: Wheelchair ld1 22:57 Acuity: SREEDHAR 3 ld1 Triage Assessment: 22:57 General: Appears in no apparent distress. uncomfortable, Behavior is calm, cooperative, ld1 appropriate for age. Pain: Complains of pain in right lower back Pain does not radiate. Pain currently is 9 out of 10 on a pain scale. EENT: No signs and/or symptoms were reported regarding the EENT system. Neuro: Level of Consciousness is awake, alert, obeys commands, Oriented to person, place, time, situation. Cardiovascular: Capillary refill < 3 seconds Patient's skin is warm and dry. Respiratory: Airway is patent Respiratory effort is even, unlabored. GI: Abdomen is round non-distended. : No signs and/or symptoms were reported regarding the genitourinary system. Derm: No signs and/or symptoms reported regarding the dermatologic system. Musculoskeletal: No signs and/or symptoms reported regarding the musculoskeletal system. Historical: - Allergies: :57 Codeine; ld1 - PMHx: 22:57 Hypertension; Hypothyroidism; shingles; ld1 - PSHx: 22:57 None; ld1 - Immunization history:: Adult Immunizations up to date, Client reports receiving the 2nd dose of the Covid vaccine. - Social history:: Smoking status: Patient denies any tobacco usage or history of. Patient/guardian denies using alcohol. Screenin:12 Abuse screen: Denies threats or abuse. Denies injuries from another. Nutritional tw5 screening: No deficits noted. On. Nutritional screening: No deficits noted. Tuberculosis screening: No symptoms or risk factors identified. Fall Risk Ambulatory Aid- Furniture (30 pts.). Assessment: 23:12 General: Reports "I can usually get around just fine, until all this started. My right tw5 hip just hurts so bad. I has been hard getting in and out of bed.". Pain: Complains of pain in right hip Pain currently is 9 out of 10 on a pain scale. Neuro: Level of Consciousness is awake, alert, obeys commands, Oriented to person, place, time, situation. Vital Signs: 22:57 BP 103 / 82; Pulse 87; Resp 18; Temp 97.6(TE); Pulse Ox 100% on R/A; Weight 81.65 kg; ld1 Height 5 ft. 5 in. (165.10 cm); Pain 9/10; 22:57 Body Mass Index 29.95 (81.65 kg, 165.10 cm) ld1 ED Course: 22:52 Patient arrived in ED. dt4 22:52 Alex Grajeda DO is Attending Physician. ms3 22:57 Arm band placed on right wrist. ld1 22:58 Triage completed. ld1 23:07 Jessica Nguyen is Primary Nurse. tw5 23:12 Placed in gown. Bed in low position. Call light in reach. Side rails up X 1. Pulse ox tw5 on. NIBP on. Door closed. Noise minimized. Moved to private room. Warm blanket given. Verbal reassurance given. 23:12 Assisted to bathroom. tw5 23:30 Lumbar Spine (3 Views) XRAY In Process Unspecified. EDMS 03/01 00:41 No provider procedures requiring assistance completed. Patient did not have IV access tw5 during this emergency room visit. Administered Medications: 02/28 23:48 Drug: HYDROcodone-acetaminophen 5 mg-325 mg 1 tabs Route: PO; jb4 03/01 00:37 Follow up: Response: No adverse reaction; Pain is decreased; RASS: Alert and Calm (0) tw5 02/28 23:48 Drug: Valium (diazepam) 5 mg Route: PO; jb4 03/01 00:37 Follow up: Response: No adverse reaction; Pain is decreased tw5 00:31 Not Given (Physician Discretion): Ketorolac 30 mg IM once ms3 00:37 Drug: Ketorolac 15 mg Route: IM; Site: right ventrogluteal; tw5 00:41 Follow up: Response: No adverse reaction; Medication administered at discharge. tw5 Medication: 02/28 23:12 VIS not applicable for this client. tw5 Outcome: 03/01 00:15 Discharge ordered by . ms3 00:41 Discharged to home via wheelchair, with family. tw5 00:41 Condition: improved 00:41 Discharge instructions given to patient, Instructed on discharge instructions, follow up and referral plans. Demonstrated understanding of instructions, follow-up care, medications, Prescriptions given X 3. 00:41 Patient left the ED. tw5 Signatures: Dispatcher [employer] EDMS Hunter Toro RN RN jb4 lAex Grajeda DO DO ms3 Shereen Schafer RN RN chiquis1 Jessica Nguyen tw5 Callie Avina4
--- NOTE | 2022-03-01 00:16 | EDPHYS ---
Physician Documentation [facility] Name: Elisa Robledo Age: 66 yrs Sex: Female : 1955 Arrival Date: 02/28/2022 Time: 22:52 Bed 6 Private MD: ED Physician Alex Grajeda HPI: 03/01 00:15 This 66 yrs old Black Female presents to ER via Wheelchair with complaints of Hip Pain, ms3 Leg Pain. 00:15 66-year-old female with past medical history of hypertension, hypothyroidism presents ms3 for right lower back pain that radiates down her leg. Patient states the pain began yesterday. Patient's pain is rated 9/10 and described as shooting. Patient states she has had similar episodes in the past that were related to her sciatica. Patient denies alleviating factors. Patient states movement makes the pain worse. Historical: - Allergies: 02/28 22:57 Codeine; ld1 - PMHx: 22:57 Hypertension; Hypothyroidism; shingles; ld1 - PSHx: 22:57 None; ld1 - Immunization history:: Adult Immunizations up to date, Client reports receiving the 2nd dose of the Covid vaccine. - Social history:: Smoking status: Patient denies any tobacco usage or history of. Patient/guardian denies using alcohol. ROS: 03/01 00:15 Constitutional: Negative for fever, and chills. Neck: Negative for injury, pain, and ms3 swelling, Cardiovascular: Negative for chest pain, and palpitations. Respiratory: Negative for shortness of breath, cough, wheezing, and pleuritic chest pain, Abdomen/GI: Negative for abdominal pain, nausea, vomiting, diarrhea, and constipation. Back: Positive for pain with movement. MS/extremity: Positive for pain, paresthesias, of the right leg. Exam: 00:15 Constitutional: This is a well developed, well nourished patient who is awake, alert, ms3 and in no acute distress. Head/Face: Normocephalic, atraumatic. Neck: Trachea midline, no cervical lymphadenopathy. Supple, full range of motion without nuchal rigidity, or vertebral point tenderness. No Meningismus. Chest/axilla: Normal chest wall appearance and motion. Nontender with no deformity. Cardiovascular: Regular rate and rhythm with a normal S1 and S2. No gallops, murmurs, or rubs. Normal PMI, no JVD. No pulse deficits. Respiratory: Lungs have equal breath sounds bilaterally, clear to auscultation and percussion. No rales, rhonchi or wheezes noted. No increased work of breathing, no retractions or nasal flaring. Abdomen/GI: Soft, non-tender, with normal bowel sounds. No distension or tympany. No guarding or rebound. No evidence of tenderness throughout. 00:15 Skin: Warm, dry with normal turgor. Normal color with no rashes, no lesions, and no evidence of cellulitis. MS/ Extremity: Pulses equal, no cyanosis. Neurovascular intact. Full, normal range of motion. Neuro: Awake and alert, GCS 15, oriented to person, place, time, and situation. Cranial nerves II-XII grossly intact. Motor strength 5/5 in all extremities. Sensory grossly intact. Cerebellar exam normal. Normal gait. Psych: Awake, alert, with orientation to person, place and time. Behavior, mood, and affect are within normal limits. 00:15 Back: pain, that is moderate, of the right low back, ROM is normal, normal spinal alignment noted, CVA tenderness, is absent, vertebral tenderness, is not appreciated, muscle spasm, is appreciated in the right low back. Vital Signs: 02/28 22:57 BP 103 / 82; Pulse 87; Resp 18; Temp 97.6(TE); Pulse Ox 100% on R/A; Weight 81.65 kg; ld1 Height 5 ft. 5 in. (165.10 cm); Pain 9/10; 22:57 Body Mass Index 29.95 (81.65 kg, 165.10 cm) ld1 MDM: 23:03 Patient medically screened. ms3 03/01 00:15 Data reviewed: vital signs, nurses notes, lab test result(s), radiologic studies, and ms3 as a result, I will discharge patient. Counseling: I had a detailed discussion with the patient and/or guardian regarding: the historical points, exam findings, and any diagnostic results supporting the discharge/admit diagnosis, lab results, radiology results, the need for outpatient follow up, to return to the emergency department if symptoms worsen or persist or if there are any questions or concerns that arise at home. ED course: Discussed UA and lumbar x-ray with patient. Patient symptoms improved after [place] and Valium. Patient agrees with discharge at this time. Patient to follow-up with primary care physician in 2 to 3 days. All questions were answered. Return precautions discussed include worsening symptoms, or any other concerns. On reevaluation patient is improved, in no apparent distress, nontoxic, ambulatory in the emergency department.. 02/28 23:03 Order name: Urine Microscopic Only; Complete Time: 00:13 ms3 02/28 23:03 Order name: Lumbar Spine (3 Views) XRAY; Complete Time: 00:13 ms3 02/28 23:03 Order name: Urine Dipstick-Ancillary (obtain specimen); Complete Time: 23:53 ms3 Administered Medications: 02/28 23:48 Drug: HYDROcodone-acetaminophen 5 mg-325 mg 1 tabs Route: PO; 4 03/01 00:37 Follow up: Response: No adverse reaction; Pain is decreased; RASS: Alert and Calm (0) tw5 02/28 23:48 Drug: Valium (diazepam) 5 mg Route: PO; 4 03/01 00:37 Follow up: Response: No adverse reaction; Pain is decreased tw5 00:31 Not Given (Physician Discretion): Ketorolac 30 mg IM once ms3 00:37 Drug: Ketorolac 15 mg Route: IM; Site: right ventrogluteal; tw5 00:41 Follow up: Response: No adverse reaction; Medication administered at discharge. tw5 Disposition Summary: 03/01/22 00:15 Discharge Ordered Location: Home ms3 Condition: Stable ms3 Diagnosis - Sciatica, right side ms3 Followup: ms3 - With: Private Physician - When: 2 - 3 days - Reason: Recheck today's complaints Discharge Instructions: - Discharge Summary Sheet ms3 - Sciatica ms3 Forms: - Medication Reconciliation Form ms3 - Thank You Letter ms3 - Antibiotic Education ms3 - Prescription Opioid Use ms3 - Work release form tw5 Prescriptions: - Ibuprofen 600 mg Oral Tablet - take 1 tablet by ORAL route every 6 hours As needed take with food; 30 tablet; ms3 Refills: 0, Product Selection Permitted - Medrol ([place]) 4 mg Oral Tablets, Dose Pack - take 1 tablet by ORAL route as directed - follow package instructions; 1 ms3 packet; Refills: 0, Product Selection Permitted - Cyclobenzaprine 5 mg Oral Tablet - take 1 tablet by ORAL route 3 times per day As needed; 15 tablet; Refills: 0, ms3 Product Selection Permitted Signatures: Dispatcher [employer] Hunter Cook RN RN jb4 Alex Grajeda DO DO ms3 Shereen Schafer RN RN ld1 Jessica Nguyen tw5 Corrections: (The following items were deleted from the chart) 08:47 08:46 This 66 yrs old Black Female presents to ER via Wheelchair with complaints of Hip ms3 Pain, Leg Pain. ms3
[2022-03-01] MEDS ORDERED: KETOROLAC 30 MG/ML INJ ONE (00:40)
[2022-03-02 14:52] LABS: Urine Blood Trace-intact (Negative); Urine Glucose Negative (Negative); Urine Protein Negative (Negative); Urine Specific Gravity 1.015 (1.005-1.030)
[2022-03-02 18:58] VITALS: BP 103/82; TEMP 97.6; O2SAT 100
== END 2022-03-01 00:41 | disposition home or self-care (01) ==
LOC: ER 22:48
DX: M54.31 Sciatica, right side (principal); Z88.5 Allergy status to narcotic agent
CPT/HCPCS: 72100; 81003; 81015; 96372; 99284

== ENCOUNTER 2023-10-13 06:13 | Emergency (ER) | payer BC ==
[2023-10-13 06:59] LABS: Absolute Eosinophils 0.1 K/uL (0-0.5); Absolute Lymphocytes (CBC) 1.1 K/uL (0.7-4.9); Absolute Monocytes 0.8 K/uL (0.1-1.3); Absolute Neutrophil 3.5 K/uL (1.8-8.0); Basophils % 0.7 % (0-1.3); Eosinophils % 1.8 % (0-4.4); Hematocrit 36.6 % (36.0-45.0); Hemoglobin 12.2 g/dL (12.0-15.0); Lymphocytes % 19.8 % (15.3-44.8); MCH 27.4 pg (27.0-35.0); MCHC 33.4 g/dL (32.0-36.0); MCV 82.1 fL (80-100); MPV 9.6 fL (7.6-11.3); Neutrophils % 63.7 % (41.7-73.7); Nucleated Red Blood Cells % 0.1 % (0-0); Platelets 192 thou/uL (152-406); RBC Red Blood Cell Count 4.46 M/uL (3.86-4.86); Red Cell Distribution Width 12.9 % (12.1-15.2)
[2023-10-13 07:11] LABS: SARS-CoV-2 Antigen CONTROL BLUE LINE VIS/BG OK
[2023-10-13 07:12] LABS: SARS-CoV-2 Antigen Rapid Res Positive (Negative)
[2023-10-13 07:13] LABS: Anion Gap 6.4 mEq/L (5.0-15.0); Magnesium 1.9 mg/dL (1.6-2.4); Potassium 3.4 mEq/L (3.5-5.1)
--- NOTE | 2023-10-13 07:16 | RAD REPORT ---
EXAM DESCRIPTION: [place] Single View10/13/2023 7:02 am CLINICAL HISTORY: Shortness breath COMPARISON: 2018 FINDINGS: Artifact overlies chest. The lungs appear clear of acute infiltrate. The heart is normal size IMPRESSION: No acute abnormalities displayed
--- NOTE | 2023-10-13 07:41 | EDPHYS ---
Physician Documentation [facility] Name: Elisa Robledo Age: 68 yrs Sex: Female : 1955 Arrival Date: 10/13/2023 Time: 06:13 Bed 7 Private MD: ED Physician Miguel Gonsales HPI: 10/12 06:29 This 68 yrs old Black Female presents to ER via Unassigned with complaints of Flu ms3 Symptoms, Fever, Cough. 06:29 68-year-old female with past medical history of hypertension, atrial fibrillation ms3 presents to the emergency department for cough and shortness of breath that been ongoing for 24 hours. Patient states her symptoms are becoming worse. Patient endorses chills. Patient denies nausea, vomiting, diarrhea.. Historical: - Allergies: 07:08 Codeine; vc1 - PMHx: 07:08 Hypertension; Hypothyroidism; shingles; Angina pectoris; "Extra heart beat"; vc1 - PSHx: 07:08 section; vc1 - Immunization history:: Client reports receiving the 2nd dose of the Covid vaccine, Flu vaccine is up to date. - Infectious Disease History:: Denies. - Social history:: Smoking status: Patient denies any tobacco usage or history of. ROS: 06:29 Constitutional: Negative for fever, and chills. Neck: Negative for injury, pain, and ms3 swelling, Cardiovascular: Negative for chest pain, and palpitations. 06:29 MS/Extremity: Negative for injury and deformity, Skin: Negative for injury, rash, and discoloration, 06:29 Respiratory: Positive for shortness of breath, Exam: 06:29 Constitutional: This is a well developed, well nourished patient who is awake, alert, ms3 and in no acute distress. Head/Face: Normocephalic, atraumatic. Chest/axilla: Normal chest wall appearance and motion. Nontender with no deformity. Respiratory: Lungs have equal breath sounds bilaterally, clear to auscultation and percussion. No rales, rhonchi or wheezes noted. No increased work of breathing, no retractions or nasal flaring. Abdomen/GI: Soft, non-tender, with normal bowel sounds. No distension or tympany. No guarding or rebound. No evidence of tenderness throughout. Skin: Warm, dry with normal turgor. Normal color with no rashes, no lesions, and no evidence of cellulitis. 06:29 Cardiovascular: Rate: normal, Rhythm: irregularly irregular, Pulses: no pulse deficits are appreciated, Heart sounds: normal, normal S1and S2, 06:46 ECG was reviewed by the Attending Physician. ms3 Vital Signs: 06:20 BP 125 / 60; Pulse 98; Resp 17; Temp 98.2; Pulse Ox 96% ; Weight 73.94 kg; Height 5 ft. vc1 4 in. ; Pain 0/10; 07:49 BP 127 / 71; Pulse 96; Resp 20; Pulse Ox 100% on R/A; ld1 09:29 BP 136 / 81; Pulse 82; Resp 17; Pulse Ox 98% on R/A; ss 06:20 Body Mass Index 27.98 (73.94 kg, 162.56 cm) vc1 06:20 Pain Scale: Adult vc1 MDM: 06:29 Differential diagnosis: viral Infection, URI, pneumonia Myocardial infarction versus ms3 heart failure. 06:31 Patient medically screened. ms3 07:09 Transition of care: After a detail discussion of the patient's case, care is ms3 transferred to Miguel Gonsales MD. 07:38 Data reviewed: vital signs, nurses notes, lab test result(s), EKG, radiologic studies, [place] plain films. Consideration of Admission/Observation Escalation of care including admission/observation considered. I considered the following discharge prescriptions or medication management in the emergency department Medications were administered in the Emergency Department. See MAR. Independent interpretation of the following test(s) in the Emergency Department EKG: See my EKG interpretation above. Test considered but Not performed: CT: no ct chest. Care significantly affected by the following chronic conditions: Hypertension, Obesity. Counseling: I had a detailed discussion with the patient and/or guardian regarding the historical points, exam findings, and any diagnostic results supporting the discharge/admit diagnosis, lab results, radiology results, the need for outpatient follow up, for definitive care, a family practitioner. 10/12 06:29 Order name: Basic Metabolic Panel; Complete Time: 07:31 ms3 10/12 06:29 Order name: CBC with Diff; Complete Time: 07:31 ms3 10/12 06:29 Order name: Magnesium; Complete Time: 07:31 ms3 05/05 06:29 Order name: NT PRO-BNP; Complete Time: 07:31 ms3 05/05 06:29 Order name: Troponin HS; Complete Time: 07:31 ms3 05/05 06:29 Order name: SARS RAPID; Complete Time: 07:31 ms3 05/ 06:29 Order name: Flu; Complete Time: 07:31 ms3 05/05 06:29 Order name: XRAY Chest (1 view); Complete Time: 07:31 ms3 05 06:29 Order name: Cardiac monitoring; Complete Time: 06:38 ms3 0505 06:29 Order name: EKG - Nurse/Tech; Complete Time: 06:38 ms3 0505 06:29 Order name: IV Saline Lock; Complete Time: 06:38 ms3 0505 06:29 Order name: Labs collected and sent; Complete Time: 06:38 ms3 0505 06:29 Order name: O2 Per Protocol; Complete Time: 06:38 ms3 0505 06:29 Order name: O2 Sat Monitoring; Complete Time: 06:38 ms3 0505 07:39 Order name: PO challenge; Complete Time: 07:48 [place] EC:46 Rate is 91 beats/min. Rhythm is irregular. QRS [place] is Normal. NE interval is normal. ms3 QRS interval is normal. Clinical impression: NSR w/ Non-specific ST/T Changes. Interpreted by me. Reviewed by me. Administered Medications: 07:55 Drug: NS 0.9% IV 1000 ml IV at 1 bolus Per protocol; 1000 mL bolus Route: IV; Rate: 1 ld1 bolus; Site: right forearm; 09:31 Follow up: IV Status: Completed infusion; IV Intake: 1000ml ss 07:55 Drug: Famotidine PO 40 mg PO once Route: PO; ld1 09:31 Follow up: Response: No adverse reaction ss 07:55 Drug: Oseltamivir PO 75 mg PO once Route: PO; ld1 09:31 Follow up: Response: No adverse reaction ss 07:55 Drug: AZITHromycin PO 500 mg PO once Route: PO; ld1 09:31 Follow up: Response: No adverse reaction ss 07:55 Drug: Aspirin PO Chewable Tablet 81 mg PO once Route: PO; ld1 09:31 Follow up: Response: No adverse reaction ss 07:55 Drug: Potassium PO Effervescent Tablet 25 mEq PO once; dissolve in 4 ounces of water or ld1 juice Route: PO; 09:31 Follow up: Response: No adverse reaction ss Disposition Summary: 10/13/23 07:41 Discharge Ordered Notes: Location: [facility] Problem: new [place] Symptoms: have improved [place] Condition: Stable [place] Diagnosis - SARS-associated coronavirus as the cause of diseases classified elsewhere [place] - Influenza due to unidentified influenza virus with other respiratory manifestations [place] - flu B - Acute upper respiratory infection, unspecified [place] - Cough [place] [facility]up: [facility] - With: Private Physician - When: 2 - 3 days - Reason: Recheck today's complaints, Re-evaluation by your physician Discharge Instructions: - Discharge Summary Sheet [place] - Influenza, Adult [place] - Cool Mist Vaporizer [place] - Upper Respiratory Infection, Adult, [id number] [place] - Influenza, Adult, [id number] [place] - Aspirin and Your Heart [facility] - Cough, Adult [facility] - COVID-19 [place] - Viral Illness, Adult [facility] - COVID-19: Quarantine and Isolation - [facility] (09/06/2021) [facility] - COVID-19: What to Do If You Are Sick - [facility] (08/29/2021) [facility] Forms: - Medication Reconciliation Form [facility] - Antibiotic Education [place] - Prescription Opioid Use [facility] - Patient Portal Instructions [facility] - Leadership Thank You Letter [facility] - Work release form ld1 Prescriptions: - Paxlovid 300 mg (150 mg x 2)-100 mg Oral Tablet, Dose Pack - take 1 dose pack ORAL route as directed on dose pack take TWO 150 mg tablets of [place] nirmatrelvir with ONE 100 mg tablet of ritonavir twice daily for 5 days; 30 tablet; Refills: 0, Product Selection Permitted - Pepcid 40 mg Oral tablet - take 1 tablet ORAL route daily for 12 wks; 30 tablet; Refills: 0, Product [place] Selection Permitted - budesonide-formoterol 160-4.5 mcg/actuation Inhalation HFA Aerosol Inhaler - inhale 2 puff INHALATION route 2 times per day; 1 unit; Refills: 0, Product [place] Selection Permitted - ondansetron 4 mg Oral Tablet,disintegrating - take 1 tablet ORAL route every 6 to 8 hours for 5 days; 20 tablet; Refills: 0, [facility] Product Selection Permitted - Tessalon Perles 100 mg Oral capsule - take 2 capsule ORAL route every 8 hours As needed; 30 capsule; Refills: 0, [facility] Product Selection Permitted - Tamiflu 75 mg Oral capsule - take 1 tablet ORAL route every 12 hours for 5 days; 10 tablet; Refills: 0, [place] Product Selection Permitted - Zithromax 500 mg Oral tablet - take 1 tablet ORAL route once daily for 5 days; 5 tablet; Refills: 0, Product [place] Selection Permitted Signatures: Dispatcher [employer] EDMS Miguel Gonsales MD MD cha Sims, Marcus, DO ms3 Shereen Grajeda RN RN ld1 Bernie Salinas RN RN vc1 Annie Ruiz RN ss Corrections: (The following items were deleted from the chart) 06: 06:29 Chest Single View+RAD.RAD.BRZ ordered. EDMS EDMS 06:29 SARS-COV-2 Antigen Rapid+I.LAB.BRZ ordered. EDMS EDMS 06: 06:29 Influenza Screen (A \\T\\ B)+BA.LAB.BRZ ordered. EDFL EDMS
--- NOTE | 2023-10-13 07:41 | ER ---
Nurse's Notes [facility] Name: Elisa Robledo Age: 68 yrs Sex: Female : 1955 Arrival Date: 10/13/2023 Time: 06:13 Bed 7 Private MD: Diagnosis: SARS-associated coronavirus as the cause of diseases classified elsewhere;Influenza due to unidentified influenza virus with other respiratory manifestations-flu B;Acute upper respiratory infection, unspecified;Cough Presentation: 10/12 06:20 Chief complaint: Patient states: cough, body aches and fever. vc1 06:20 Coronavirus screen: Client denies travel out of the [place] in the last 14 days. chills, vc1 cough unrelated to allergies, muscle pain, Client presents with at least one sign or symptom that may indicate coronavirus-19. Ebola Screen: Patient negative for fever greater than or equal to 101.5 degrees Fahrenheit, and additional compatible Ebola Virus Disease symptoms Patient denies exposure to infectious person. Patient denies travel to an Ebola-affected area in the 21 days before illness onset. No symptoms or risks identified at this time. Initial Sepsis Screen: Does the patient meet any 2 criteria? No. Patient's initial sepsis screen is negative. Does the patient have a suspected source of infection? No. Patient's initial sepsis screen is negative. Risk Assessment: Do you want to hurt yourself or someone else? Patient reports no desire to harm self or others. Onset of symptoms was October 12, 2023 at 19:00. 06:20 Method Of Arrival: Ambulatory vc1 06:20 Acuity: SREEDHAR 4 vc1 Triage Assessment: 06:20 General: Appears in no apparent distress. comfortable, ill, Behavior is calm, vc1 cooperative, appropriate for age. Pain: Complains of pain in generalized body aches Pain does not radiate. Quality of pain is described as aching. Neuro: Level of Consciousness is awake, alert, obeys commands, Oriented to person, place, time, situation, Appropriate for age. Respiratory: Reports cough that is persistent Airway is patent Respiratory effort is even, unlabored, Respiratory pattern is regular, symmetrical. Derm: Skin is intact, is healthy with good turgor, Skin is dry, Skin is normal, Skin temperature is warm. 06:20 General: Reports chills for fever for feeling ill for. vc1 Historical: - Allergies: 07:08 Codeine; vc1 - PMHx: 07:08 Hypertension; Hypothyroidism; shingles; Angina pectoris; "Extra heart beat"; vc1 - PSHx: 07:08 section; vc1 - Immunization history:: Client reports receiving the 2nd dose of the Covid vaccine, Flu vaccine is up to date. - Infectious Disease History:: Denies. - Social history:: Smoking status: Patient denies any tobacco usage or history of. Screenin:38 [facility] ED Fall Risk Assessment (Adult) History of falling in the last 3 months, tm6 including since admission No falls in past 3 months (0 pts) Confusion or Disorientation No (0 pts) Intoxicated or Sedated No (0 pts) Impaired Gait No (0 pts) Mobility Assist Device Used No (0 pt) Altered Elimination No (0 pt) Score/Fall Risk Level 0 - 2 = Low Risk Oriented to surroundings, Maintained a safe environment. Abuse screen: Denies threats or abuse. Denies injuries from another. Nutritional screening: No deficits noted. Tuberculosis screening: No symptoms or risk factors identified. Assessment: 06:39 General: Appears in no apparent distress. uncomfortable, Behavior is calm, cooperative. tm6 06:39 Pain: Denies pain. Neuro: No deficits noted. Level of Consciousness is awake, alert, tm6 obeys commands, Oriented to person, place, time, situation. Cardiovascular: No deficits noted. Patient's skin is warm and dry. Respiratory: Airway is patent Respiratory effort is even, unlabored, Respiratory pattern is regular, symmetrical, Parent/caregiver reports the patient having cough that is non-productive. GI: No signs and/or symptoms were reported involving the gastrointestinal system. Abdomen is flat, non-distended, Abd is soft and non tender X 4 quads. : No signs and/or symptoms were reported regarding the genitourinary system. EENT: Reports nasal congestion. Derm: No signs and/or symptoms reported regarding the dermatologic system. Musculoskeletal: Reports body aches. 07:49 Reassessment: Patient appears in no apparent distress at this time. Patient and/or ld1 family updated on plan of care and expected duration. Pain level reassessed. Patient is alert, oriented x 3, equal unlabored respirations, skin warm/dry/pink. 07:55 Reassessment: Discharge pending fluids. Fluids administered now. ld1 09:29 Reassessment: Patient and/or family updated on plan of care and expected duration. Pain ss level reassessed. Patient is alert, oriented x 3, equal unlabored respirations, skin warm/dry/pink. Vital Signs: 06:20 BP 125 / 60; Pulse 98; Resp 17; Temp 98.2; Pulse Ox 96% ; Weight 73.94 kg; Height 5 ft. vc1 4 in. ; Pain 0/10; 07:49 BP 127 / 71; Pulse 96; Resp 20; Pulse Ox 100% on R/A; ld1 09:29 BP 136 / 81; Pulse 82; Resp 17; Pulse Ox 98% on R/A; ss 06:20 Body Mass Index 27.98 (73.94 kg, 162.56 cm) vc1 06:20 Pain Scale: Adult vc1 ED Course: 06:17 Patient arrived in ED. jj6 06:18 Alex Grajeda DO is Attending Physician. ms3 06:22 Shailesh Castillo, RN is Primary Nurse. tm6 06:37 EKG done, by ED staff, reviewed by Alex Grajeda DO. Inserted saline lock: 20 gauge in tm6 right antecubital area, using aseptic technique. 06:38 Basic Metabolic Panel Sent. tm6 06:38 CBC with Diff Sent. tm6 06:38 Magnesium Sent. tm6 06:38 NT PRO-BNP Sent. tm6 06:38 Troponin HS Sent. tm6 06:38 SARS RAPID Sent. tm6 06:38 Flu Sent. tm6 06:38 Patient has correct armband on for positive identification. Placed in gown. Bed in low tm6 position. Call light in reach. Side rails up X2. Provided Education on: plan of care. Client placed on continuous cardiac and pulse oximetry monitoring. NIBP monitoring applied. groundwater monitoring technician on. Pulse ox on. NIBP on. Door closed. Noise minimized. Warm blanket given. 07:03 Attending Physician role handed off by Alex Grajeda DO china 07:03 Miguel Gonsales MD is Attending Physician. [place] 07:04 XRAY Chest (1 view) In Process Unspecified. EDMS 07:08 Triage completed. vc1 07:12 Notified ED physician of a critical lab result(s). covid +. ll1 09:29 No provider procedures requiring assistance completed. IV discontinued, intact, ss bleeding controlled, No redness/swelling at site. Pressure dressing applied. Administered Medications: 07:55 Drug: NS 0.9% IV 1000 ml IV at 1 bolus Per protocol; 1000 mL bolus Route: IV; Rate: 1 ld1 bolus; Site: right forearm; 09:31 Follow up: IV Status: Completed infusion; IV Intake: 1000ml ss 07:55 Drug: Famotidine PO 40 mg PO once Route: PO; ld1 09:31 Follow up: Response: No adverse reaction ss 07:55 Drug: Oseltamivir PO 75 mg PO once Route: PO; ld1 09:31 Follow up: Response: No adverse reaction ss 07:55 Drug: AZITHromycin PO 500 mg PO once Route: PO; ld1 09:31 Follow up: Response: No adverse reaction ss 07:55 Drug: Aspirin PO Chewable Tablet 81 mg PO once Route: PO; ld1 09:31 Follow up: Response: No adverse reaction ss 07:55 Drug: Potassium PO Effervescent Tablet 25 mEq PO once; dissolve in 4 ounces of water or ld1 juice Route: PO; 09:31 Follow up: Response: No adverse reaction ss Medication: 06:38 VIS not applicable for this client. tm6 Intake: 09:31 IV: 1000ml; Total: 1000ml. ss Outcome: 07:41 Discharge ordered by . china 09:29 Discharged to home ambulatory, with family, 09:29 Condition: good 09:29 Demonstrated understanding of instructions, follow-up care, medications, Prescriptions given X x6 09:32 Patient left the ED. ss Signatures: Dispatcher [employer] EDMS Miguel Gonsales MD MD cha Blanchard, Shelby, RN RN ss Parveen Baird RN RN ll1 Alex Grajeda DO DO ms3 Shereen Grajeda RN RN ld1 Teresa Scales jj6 Bernie Salinas RN RN vc1 Shailesh Castillo RN RN tm6
[2023-10-13] MEDS ORDERED: AZITHROMYCIN 250 MG TAB ONE (07:43)
[2023-10-13] MEDS ORDERED: FAMOTIDINE 20 MG TAB ONE (07:43)
[2023-10-13] MEDS ORDERED: ASPIRIN 81 MG CHEWABLE TABLET ONE (07:43)
[2023-10-13] MEDS ORDERED: OSELTAMIVIR 75 MG CAP PO ONE (07:43)
[2023-10-13] MEDS ORDERED: POTASSIUM 25 MEQ EFFERV TAB ONE (07:44)
[2023-10-13] MEDS ORDERED: NA CHLORIDE 0.9% 1,000 ML ONE (07:44)
[2023-10-13 09:58] VITALS: BP 136/81; TEMP 98.2; O2SAT 98
--- NOTE | 2023-10-14 14:41 | EKG ---
Test Date: 2023-10-13 Test Time: 06:34:01 Ophthalmologist: JASON MEASUREMENT RESULTS: Intervals: Rate: 91 DE: 142 QRSD: 66 QT: 352 QTc: 432 [place]: P: 62 DE: 142 QRS: 49 T: -21 INTERPRETIVE STATEMENTS: Sinus rhythm with frequent premature ventricular complexes Biatrial enlargement ST & T wave abnormality, consider inferior ischemia Abnormal ECG Compared to ECG 06/18/2017 11:39:29 Ventricular premature complex(es) now present ST (T wave) deviation now present Possible ischemia now present Electronically Signed On 10-14-23 14:38:15 CDT by Dakota Blum
== END 2023-10-13 09:32 | disposition home or self-care (01) ==
LOC: ER 06:13
DX: U07.1 COVID-19 (principal); J10.1 Influenza due to other identified influenza virus with other respiratory manifestations; Z88.5 Allergy status to narcotic agent
CPT/HCPCS: 96361; 93005; 85025; 80048; 36415; 83735; 84484; 83880; 87804 ×2; 71045; 96360; 99285; 87811; J7030

== ENCOUNTER 2024-02-12 12:05 | Emergency (ER) | payer BC ==
[2024-02-12 13:19] LABS: SARS-CoV-2 Antigen CONTROL BLUE LINE VIS/BG OK; SARS-CoV-2 Antigen Rapid Res Negative (Negative)
--- NOTE | 2024-02-12 14:46 | ER ---
Nurse's Notes [facility] Name: Elisa Robledo Age: 68 yrs Sex: Female : 1955 Arrival Date: 02/12/2024 Time: 12:05 Bed 2 Private MD: Diagnosis: Acute upper respiratory infection, unspecified Presentation: 02/11 12:31 Chief complaint: Patient states: Sneezing, nasal congestion, cough started yesterday. ll1 Slight sore throat. Coronavirus screen: Client denies travel out of the [place] in the last 14 days. congestion, cough unrelated to allergies, sore throat, Client presents with at least one sign or symptom that may indicate coronavirus-19. Standard/surgical mask placed on the client. Ebola Screen: Patient denies travel to an Ebola-affected area in the 21 days before illness onset. Initial Sepsis Screen: Does the patient meet any 2 criteria? No. Patient's initial sepsis screen is negative. Does the patient have a suspected source of infection? No. Patient's initial sepsis screen is negative. Risk Assessment: Do you want to hurt yourself or someone else? Patient reports no desire to harm self or others. Onset of symptoms was February 11, 2024. 12:31 Method Of Arrival: Ambulatory ll1 12:31 Acuity: SREEDHAR 4 ll1 Historical: - Allergies: 12:24 Codeine; ph - PMHx: 12:24 angina pectoris; Hypertension; Hypothyroidism; shingles; ph - PSHx: 12:24 section; ph 12:31 heart cath; ll1 - Immunization history:: Adult Immunizations unknown. - Infectious Disease History:: Denies. - Social history:: Smoking status: Patient denies any tobacco usage or history of. Screenin:24 [facility] ED Fall Risk Assessment (Adult) History of falling in the last 3 months, ph including since admission No falls in past 3 months (0 pts) Confusion or Disorientation Yes (5 pts) Intoxicated or Sedated No (0 pts) Impaired Gait No (0 pts) Mobility Assist Device Used No (0 pt) Altered Elimination No (0 pt) Score/Fall Risk Level 0 - 2 = Low Risk Oriented to surroundings, Maintained a safe environment, Hourly rounding (assess needs \T\ fall precautionary measures) done. Abuse screen: Denies threats or abuse. Denies injuries from another. Nutritional screening: No deficits noted. Tuberculosis screening: No symptoms or risk factors identified. Assessment: 12:56 General: Appears in no apparent distress. Behavior is calm, cooperative, appropriate dd2 for age. Pain: Complains of pain in aruna shoulders Pain currently is 3 out of 10 on a pain scale. Neuro: No deficits noted. Level of Consciousness is awake, alert, obeys commands, Oriented to person, place, time, situation, Appropriate for age. Cardiovascular: Denies chest pain, Patient's skin is warm and dry. Respiratory: Reports cough that is non-productive, congestion Airway is patent Respiratory effort is even, unlabored, Respiratory pattern is regular, Breath sounds are clear bilaterally. GI: No deficits noted. No signs and/or symptoms were reported involving the gastrointestinal system. : No deficits noted. No signs and/or symptoms were reported regarding the genitourinary system. EENT: Throat is reddened Reports nasal congestion nasal discharge clear pain when swallowing. Derm: No deficits noted. No signs and/or symptoms reported regarding the dermatologic system. Vital Signs: 12:31 BP 122 / 79; Pulse 81; Resp 17; Temp 99.2(O); Pulse Ox 100% ; Weight 73.94 kg; Height 5 ll1 ft. 4 in. ; Pain 5/10; 15:13 BP 140 / 82; Pulse 78; Resp 16; Temp 98.7; Pulse Ox 98% ; dd2 12:31 Body Mass Index 27.98 (73.94 kg, 162.56 cm) ll1 12:31 Pain Scale: Adult ll1 ED Course: 12:09 Patient arrived in ED. mg5 12:18 Alex Grajeda DO is Attending Physician. ms3 12:19 Mary Fenton, RN is Primary Nurse. ph 12:24 Patient has correct armband on for positive identification. Bed in low position. Call ph light in reach. Pulse ox on. NIBP on. Door closed. Noise minimized. 12:26 Arm band placed on Patient placed in an exam room. ph 12:33 Triage completed. ll1 12:56 Provided Education on: call light, labs, procedures. Warm blanket given. dd2 12:56 No provider procedures requiring assistance completed. Patient did not have IV access dd2 during this emergency room visit. 13:00 COVID swab sent to lab. Flu and/or RSV swab sent to lab. dd2 13:16 Strep Sent. dd2 13:39 Chest Pa And Lat (2 Views) XRAY In Process Unspecified. EDMS Administered Medications: No medications were administered Medication: 12:25 VIS not applicable for this client. ph Outcome: 14:45 Discharge ordered by MD. ms3 15:13 Discharged to home ambulatory, dd2 15:13 Condition: stable 15:13 Discharge instructions given to patient, Instructed on discharge instructions, follow up and referral plans. medication usage, Demonstrated understanding of instructions, follow-up care, medications, Prescriptions given X 1, 15:14 Patient left the ED. dd2 Signatures: Dispatcher [employer] EDMS Mary Fenton RN RN Parveen Baird RN RN ll1 Alex Grajeda DO DO ms3 Colette Hand mg5 SAM COUGHLIN RN RN dd2 Corrections: (The following items were deleted from the chart) 12:31 12:24 Social history: Smoking status: unknown ph ll1
--- NOTE | 2024-02-12 14:46 | EDPHYS ---
Physician Documentation [facility] Name: Elisa Robledo Age: 68 yrs Sex: Female : 1955 Arrival Date: 02/12/2024 Time: 12:05 Bed 2 Private MD: ED Physician Alex Grajeda HPI: 02/11 12:45 This 68 yrs old Black Female presents to ER via Ambulatory with complaints of Chest ms3 Congestion, Cough. 12:45 68-year-old female with past medical history of angina pectoris, hypertension, ms3 hypothyroidism, shingles presents to the emergency department for rhinorrhea, cough, congestion. Patient states she was sneezing yesterday and then awoke with the additional symptoms this morning. Patient states she is having mild discomfort mainly located in her shoulders. She denies any alleviating or inciting factors. Patient states she took NyQuil that relieved the sneezing.. Historical: - Allergies: 12:24 Codeine; ph - PMHx: 12:24 angina pectoris; Hypertension; Hypothyroidism; shingles; ph - PSHx: 12:24 section; ph 12:31 heart cath; ll1 - Immunization history:: Adult Immunizations unknown. - Infectious Disease History:: Denies. - Social history:: Smoking status: Patient denies any tobacco usage or history of. ROS: 12:45 Constitutional: Negative for fever, and chills. Cardiovascular: Negative for chest ms3 pain, and palpitations. Abdomen/GI: Negative for abdominal pain, nausea, vomiting, diarrhea, and constipation, MS/Extremity: Negative for injury and deformity, Skin: Negative for injury, rash, and discoloration, 12:45 ENT: Positive for nasal discharge, rhinorrhea, 12:45 Respiratory: Positive for cough, Exam: 12:45 Constitutional: This is a well developed, well nourished patient who is awake, alert, ms3 and in no acute distress. Head/Face: Normocephalic, atraumatic. Cardiovascular: Regular rate and rhythm with a normal S1 and S2. No gallops, murmurs, or rubs. Normal PMI, no JVD. No pulse deficits. Respiratory: Lungs have equal breath sounds bilaterally, clear to auscultation and percussion. No rales, rhonchi or wheezes noted. No increased work of breathing, no retractions or nasal flaring. Abdomen/GI: Soft, non-tender, with normal bowel sounds. No distension or tympany. No guarding or rebound. No evidence of tenderness throughout. MS/ Extremity: Pulses equal, no cyanosis. Neurovascular intact. Full, normal range of motion. Vital Signs: 12:31 BP 122 / 79; Pulse 81; Resp 17; Temp 99.2(O); Pulse Ox 100% ; Weight 73.94 kg; Height 5 ll1 ft. 4 in. ; Pain 5/10; 15:13 BP 140 / 82; Pulse 78; Resp 16; Temp 98.7; Pulse Ox 98% ; dd2 12:31 Body Mass Index 27.98 (73.94 kg, 162.56 cm) ll1 12:31 Pain Scale: Adult ll1 MDM: 12:44 Patient medically screened. ms3 12:45 Differential Diagnosis: Upper Respiratory Infection Viral Syndrome Pneumonia Other Flu ms3 versus COVID. 19:07 Data reviewed: vital signs, nurses notes, lab test result(s), radiologic studies, and ms3 as a result, I will discharge patient. Independent interpretation of the following test(s) in the Emergency Department X-Ray: My interpretation is Chest x-ray images reviewed by me do not reveal pneumonia. Care significantly affected by the following chronic conditions: Hypertension. Counseling: I had a detailed discussion with the patient and/or guardian regarding the historical points, exam findings, and any diagnostic results supporting the discharge/admit diagnosis, lab results, radiology results, the need for outpatient follow up, to return to the emergency department if symptoms worsen or persist or if there are any questions or concerns that arise at home. Special discussion: I discussed with the patient/guardian in detail that at this point there is no indication for admission to the hospital. It is understood, however, that if the symptoms persist or worsen the patient needs to return immediately for re-evaluation. ED course: Discussed labs, and imaging with patient. Patient to follow-up with primary care physician in 2 to 3 days. Patient given prescription for benzoate 200 mg capsules. All questions were answered. Return precautions discussed include worsening symptoms, or any other concerns. On reevaluation patient is alert and oriented x 4, no apparent distress, nontoxic-appearing, speaking full sentences, ambulatory in the emergency department.. 02/11 12:45 Order name: SARS RAPID; Complete Time: 13:27 ms3 02/11 12:45 Order name: Flu; Complete Time: 13:27 ms3 02/11 13:09 Order name: Strep ms3 02/11 14:13 Order name: Throat Culture EDMS 02/11 12:45 Order name: Chest Pa And Lat (2 Views) XRAY ms3 Administered Medications: No medications were administered Disposition Summary: 02/12/24 14:45 Discharge Ordered Notes: Location: Home ms3 Condition: Stable ms3 Diagnosis - Acute upper respiratory infection, unspecified ms3 Followup: ms3 - With: Private Physician - When: 2 - 3 days - Reason: Recheck today's complaints Discharge Instructions: - Discharge Summary Sheet ms3 - Upper Respiratory Infection, Adult ms3 Forms: - Medication Reconciliation Form ms3 - Antibiotic Education ms3 - Prescription Opioid Use ms3 - Patient Portal Instructions ms3 - Leadership Thank You Letter ms3 Prescriptions: - benzonatate 200 mg Oral capsule - take 1 capsule ORAL route 3 times per day as needed; 20 capsule; Refills: 0, ms3 Product Selection Permitted Signatures: Dispatcher [employer] Mary Charles RN RN ph Parveen Baird RN RN ll1 Alex Grajeda DO DO ms3 Corrections: (The following items were deleted from the chart) 12:31 12:24 Social history: Smoking status: unknown ph ll1
[2024-02-12 15:51] VITALS: BP 140/82; TEMP 98.7; O2SAT 98
--- NOTE | 2024-02-12 18:13 | RAD REPORT ---
EXAM DESCRIPTION: Sona Dorman And Catherine (2 Views)02/12/2024 1:37 pm CLINICAL HISTORY: Cough COMPARISON: October 2023 FINDINGS: The lungs appear clear of acute infiltrate. The heart is normal size Neurostimulator device is in place Due to technical issues the exam could not be dictated until now. A preliminary report was given to [facility] emergency room IMPRESSION: No acute abnormalities displayed
== END 2024-02-12 15:14 | disposition home or self-care (01) ==
LOC: ER 12:05
DX: J06.9 Acute upper respiratory infection, unspecified (principal); Z11.52 Encounter for screening for COVID-19; I10 Essential (primary) hypertension
CPT/HCPCS: 36415; 71046; 87070; 87081; 87804; 87811; 99284